=== PATIENT | female | born 1970 | race Caucasian/White ===

== ENCOUNTER 2018-09-29 15:33 | Emergency (ER) | payer SELFPAY ==
--- NOTE | 2018-09-29 15:49 | EDM.PDOC ---
ED HPI GENERAL MEDICAL PROBLEM - General Chief Complaint: Gastrointestinal Problem Stated Complaint: NOT FEELING WELL Time Seen by Provider: 09/29/18 15:33 Source of Information: Reports: Patient, Family, Old Records, RN, RN Notes Reviewed History Limitations: Reports: No Limitations - History of Present Illness INITIAL COMMENTS - FREE TEXT/NARRATIVE: Patient presents the emergency room at [facility] for the evaluation of nausea and vomiting. The patient states that her symptoms started a few days ago and has progressively gotten worse. The patient did contact her primary care provider this morning who recommended that she stopped taking her metformin as this may be a cause. The patient is a known type II diabetic. The patient is had poor control of her diabetes. The patient usually takes NovoLog 15 units daily with her largest meal. The patient has been out of her insulin the past couple of days. The patient denies any shortness of breath or chest pain. The patient states that her abdomen feels sore. The patient has not had any problems with UTI symptoms. The patient denies any focal neurological deficits. The patient's last A1c was 14% on March 29, 2018. The patient's lipids have been controlled without any statin therapy. The patient currently is taking lisinopril for blood pressure control. The patient was recently changed over to Soliqua 36 units daily. She has not picked up this medicine. The patient also had her metformin increased to 850 mg twice a day. She has not started this new dose of Metformin. Onset: Gradual Onset Date: 09/27/18 - Related Data Allergies Allergy/AdvReac Type Severity Reaction Status Date / Time No Known Allergies Allergy Verified 09/29/18 16:11 Home Meds: Home Meds Insulin Aspart [Novolog Flexpen] 10 units SUBCUT BIDAC 02/25/16 [History] Insulin Detemir [Levemir Flextouch] 20 units SUBCUT BEDTIME 02/25/16 [History] metFORMIN HCl [Metformin HCl] 500 mg PO BID 02/25/16 [History] Insulin Detemir [Levemir] 40 unit SUBCUT DAILY pen 02/26/16 [Rx] cloNIDine [Catapres-TTS 1] 0.1 mg TRDERM Q7D #4 patch 02/26/16 [Rx] metFORMIN [Glucophage XR] 1,000 mg PO BIDMEALS tab.er 02/26/16 [Rx] Past Medical History HEENT History: Reports: None Cardiovascular History: Reports: Hypertension Respiratory History: Reports: Asthma 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 Denies: Fever, Chills Respiratory: Denies: Shortness of Breath, Cough Cardiovascular: Denies: Chest Pain, Palpitations GI/Abdominal: Reports: Abdominal Pain, Nausea, Vomiting. Denies: Diarrhea Skin: Reports: No Symptoms Neurological: Reports: No Symptoms ED EXAM, GI/ABD - Physical Exam Exam: See Below Exam Limited By: No Limitations General Appearance: Alert, No Apparent Distress Respiratory/Chest: No Respiratory Distress, Lungs Clear, Normal Breath Sounds Cardiovascular: Normal Peripheral Pulses, Regular Rate, Rhythm GI/Abdominal Exam: Soft, Non-Tender, Abnormal Bowel Sounds (Hypoactive) Neurological: Alert, Oriented Skin Exam: Warm, Dry, Intact, Normal Color Course - Vital Signs Last Recorded V/S: Last Vital Signs Temp 35.5 C 09/29/18 15:35 Pulse 83 09/29/18 15:35 Resp 18 09/29/18 15:35 BP 152/80 H 09/29/18 15:35 Pulse Ox 99 09/29/18 15:35 - Orders/Labs/Meds Labs: Laboratory Tests 09/29/18 09/29/18 09/29/18 Range/Units 16:02 16:02 16:02 WBC 14.4 H (4.0-10.0) x10^3/uL RBC 4.73 (4.00-5.50) x10^6/uL Hgb 11.9 L (12.0-16.0) g/dL Hct 36.6 (33.0-47.0) % MCV 77.4 L (78.0-93.0) fL MCH 25.2 L (26.0-32.0) pg MCHC 32.5 (32.0-36.0) g/dL RDW Coeff of Juan 15.0 (10.0-15.0) % Plt Count 401 H (130-400) x10^3/uL Neut % (Auto) 87.5 H (50.0-80.0) % Lymph % (Auto) 10.8 L (25.0-50.0) % [place] % (Auto) 1.5 L (2.0-11.0) % Eos % (Auto) 0.0 (0.0-4.0) % Baso % (Auto) 0.2 (0.2-1.2) % Sodium 134 L (136-145) mmol/L Potassium 4.3 (3.5-5.1) mmol/L Chloride 97 L (98-107) mmol/L Carbon Dioxide 23 (21-32) mmol/L Anion Gap 18.3 (10-20) mmol/L BUN 17 (7-18) mg/dL Creatinine 1.2 H (0.55-1.02) mg/dL Est Cr Clr Drug Dosing TNP Estimated GFR (MDRD) 48 Glucose 369 H (74-106) mg/dL Hemoglobin A1c (4.5-6.2) % Lactic Acid 2.8 H* (0.4-2.0) mmol/L Calcium 9.2 (8.5-10.1) mg/dL Corrected Calcium 9.68 (8.5-10.1) mg/dL Phosphorus 3.9 (2.6-4.7) mg/dL Magnesium 1.5 L (1.8-2.4) mg/dL Total Bilirubin 0.5 (0.2-1.0) mg/dL AST 19 (15-37) U/L ALT 26 (14-59) U/L Alkaline Phosphatase 103 (46-116) U/L Total Protein 8.1 (6.4-8.2) g/dL Albumin 3.4 (3.4-5.0) g/dL Globulin 4.7 Albumin/Globulin Ratio 0.72 Urine Color (YELLOW) Urine Appearance (CLEAR) Urine pH (5.0-8.0) Ur Specific [place] Urine Protein (NEGATIVE) mg/dL Urine Glucose (UA) (NEGATIVE) mg/dL Urine Ketones (NEGATIVE) mg/dL Urine Occult Blood (NEGATIVE) Urine Nitrite (NEGATIVE) Urine Bilirubin (NEGATIVE) Urine Urobilinogen (0.2) EU/dL Ur Leukocyte Esterase (NEGATIVE) Urine RBC (NOT SEEN) /HPF Urine WBC (NOT SEEN) /HPF Ur Squamous Epith Cells (NEGATIVE) /HPF Urine Bacteria (NEGATIVE) /HPF Urine Mucus (NEGATIVE) /LPF 09/29/18 09/29/18 Range/Units 16:02 17:30 WBC (4.0-10.0) x10^3/uL RBC (4.00-5.50) x10^6/uL Hgb (12.0-16.0) g/dL Hct (33.0-47.0) % MCV (78.0-93.0) fL MCH (26.0-32.0) pg MCHC (32.0-36.0) g/dL RDW Coeff of Juan (10.0-15.0) % Plt Count (130-400) x10^3/uL Neut % (Auto) (50.0-80.0) % Lymph % (Auto) (25.0-50.0) % [place] % (Auto) (2.0-11.0) % Eos % (Auto) (0.0-4.0) % Baso % (Auto) (0.2-1.2) % Sodium (136-145) mmol/L Potassium (3.5-5.1) mmol/L Chloride (98-107) mmol/L Carbon Dioxide (21-32) mmol/L Anion Gap (10-20) mmol/L BUN (7-18) mg/dL Creatinine (0.55-1.02) mg/dL Est Cr Clr Drug Dosing Estimated GFR (MDRD) Glucose (74-106) mg/dL Hemoglobin A1c 8.9 H (4.5-6.2) % Lactic Acid (0.4-2.0) mmol/L Calcium (8.5-10.1) mg/dL Corrected Calcium (8.5-10.1) mg/dL Phosphorus (2.6-4.7) mg/dL Magnesium (1.8-2.4) mg/dL Total Bilirubin (0.2-1.0) mg/dL AST (15-37) U/L ALT (14-59) U/L Alkaline Phosphatase (46-116) U/L Total Protein (6.4-8.2) g/dL Albumin (3.4-5.0) g/dL Globulin Albumin/Globulin Ratio Urine Color Yellow (YELLOW) Urine Appearance Slightly cloudy H (CLEAR) Urine pH 5.5 (5.0-8.0) Ur Specific [place] 1.025 Urine Protein 30 H (NEGATIVE) mg/dL Urine Glucose (UA) 500 H (NEGATIVE) mg/dL Urine Ketones 80 H (NEGATIVE) mg/dL Urine Occult Blood Trace-intact H (NEGATIVE) Urine Nitrite Negative (NEGATIVE) Urine Bilirubin Small H (NEGATIVE) Urine Urobilinogen 0.2 (0.2) EU/dL Ur Leukocyte Esterase Negative (NEGATIVE) Urine RBC 0-5 (NOT SEEN) /HPF Urine WBC 0-5 (NOT SEEN) /HPF Ur Squamous Epith Cells Many H (NEGATIVE) /HPF Urine Bacteria Not seen (NEGATIVE) /HPF Urine Mucus Not seen (NEGATIVE) /LPF Meds: Medications Discontinued Medications Generic Name Dose Route Start Last Admin Trade Name Freq PRN Reason Stop Dose Admin Sodium Chloride 1,000 mls @ 999 mls/hr 09/29/18 15:48 09/29/18 15:55 Normal Saline IV 09/29/18 16:48 999 mls/hr ONETIME ONE Administration Ondansetron HCl 4 mg 09/29/18 15:48 09/29/18 16:01 Zofran IVPUSH 09/29/18 15:49 4 mg ONETIME ONE Administration Prochlorperazine Edisylate 10 mg 09/29/18 16:57 09/29/18 17:13 Compazine IV 09/29/18 16:58 10 mg ONETIME ONE Administration - Radiology Interpretation Free Text/Narrative:: Abd xray: No acute findings in the abdomen See scanned report in EMR for details Departure - Departure Time of Disposition: 18:04 Disposition: Home, Self-Care 01 Condition: Good Clinical Impression: Dehydration Nausea & vomiting Qualifiers: Vomiting type: unspecified Vomiting Intractability: non-intractable Qualified Code(s): R11.2 - Nausea with vomiting, unspecified - Discharge Information *PRESCRIPTION DRUG MONITORING PROGRAM REVIEWED*: Not Applicable *COPY OF PRESCRIPTION DRUG MONITORING REPORT IN PATIENT MARIANA: Not Applicable Instructions: Nausea and Vomiting, Adult, Rehydration, Adult, Dehydration, Adult Referrals: Padmini Norris MD [Primary Care Provider] - Forms: ED Department Discharge Additional Instructions: 1. Stay well hydrated and rest 2. Stop Metformin, continue other insulins 3. LOTS of water 4. Take nausea medication as needed 5. See Dr. Norris as scheduled 6. Call us or return for any questions or concerns - Problem List Review Problem List Initiated/Reviewed/Updated: Yes - Assessment/Plan Assessment:: N/V of unknown etiology Plan: Labs and xray results discussed with patient. Offered admission, but patient declined. Will send Zofran home with patient. Needs to stay hydrated. Stop Metformin and continue with insulin as per home medication list. Patient to see PCP at next scheduled appt this week.
[2018-09-29] MEDS: Sodium Chloride 0.9% 1,000 ML IV ONE (15:55)
[2018-09-29] MEDS: Ondansetron 4 MG/2 ML SDV IVPUSH ONE (16:01)
[2018-09-29 16:15] LABS: HEMOGLOBIN A1C 8.9 % (4.5-6.2)
[2018-09-29 16:27] LABS: CHLORIDE,CL 97 mmol/L (98-107); SODIUM,NA 134 mmol/L (136-145)
[2018-09-29 16:28] LABS: ANION GAP 18.3 mmol/L (10-20)
[2018-09-29 16:30] VITALS: BP 152/80
[2018-09-29] MEDS: Prochlorperazine 10 MG/2 ML SDV IV ONE (17:13)
--- NOTE | 2018-09-29 17:57 | CR ---
[id number] RAD/RAD Abd Flat and Upright 2V EXAM: RAD Abd Flat and Upright 2V INDICATION: NAUSEA AND VOMITING. COMPARISON: None. DISCUSSION: Unobstructed bowel gas pattern. No radiographically evident pneumoperitoneum. Surgical clips project over the right upper quadrant. Vascular calcifications project over the pelvis. IMPRESSION: No acute findings in the abdomen. Sridhar Sheridan MD 09/29/18 [id number] Thank you for allowing us to participate in the care of your patient.
[2018-09-29] MEDS: Take Home: Ondansetron 4 MG Tab.DIS, 2 Tab Pack PO ONE (18:25)
== END 2018-09-29 18:25 | disposition home or self-care (01) ==
LOC: VM.ED 15:33
DX: E86.0 Dehydration (principal); R11.2 Nausea with vomiting, unspecified; I10 Essential (primary) hypertension; E11.9 Type 2 diabetes mellitus without complications; J45.909 Unspecified asthma, uncomplicated; Z79.4 Long term (current) use of insulin
CPT/HCPCS: 36415; 74019; 80053; 81001; 83036; 83605; 83735; 84100; 85025; 96361; 96374; 96375; 99284; A9270; J0780; J2405; J7030

== ENCOUNTER 2018-09-30 15:36 | Observation (INO) | payer SELFPAY ==
[2018-09-30] MEDS ORDERED: Sodium Chloride 0.9% 10 ML Syringe FLUSH PRN (16:16)
[2018-09-30] MEDS ORDERED: Ondansetron 4 MG/2 ML SDV IVPUSH ONE ×2 (16:16→17:15)
[2018-09-30] MEDS ORDERED: Sodium Chloride 0.9% 1,000 ML IV ONE (16:16)
--- NOTE | 2018-09-30 16:22 | EDM.PDOC ---
ED HPI GENERAL MEDICAL PROBLEM - General Chief Complaint: Gastrointestinal Problem Stated Complaint: Nausea and Vomiting Time Seen by Provider: 09/30/18 16:09 Source of Information: Reports: Patient History Limitations: Reports: No Limitations - History of Present Illness INITIAL COMMENTS - FREE TEXT/NARRATIVE: Patient returns to the ED after a visit yesterday in which she declined admission with similar complaints of nausea, vomiting, inability to eat or drink. She states the nausea started last week, and nausea progressed to emesis starting Thursday. Unable to keep anything down since Thursday. Has not been taking medications since Thursday. Is known to have DM II, and is not well controlled. Recent increase in metformin to 850 BID which she has not started. Additionally, has not started a new medication Soliqua which was started by her primary care provider. White count at yesterday's visit was elevated at 14.4, lactic acid elevated at 2.8. Urine positive for ketones, protein, blood, WBC's, RBC's, mucus, negative for nitrates and leukocytes. Returns to the ED with complaints of continuing nausea and vomiting. Denies headache, chest pain , SOB, denies abdominal pain, denies flank pain, no fever or chills. Onset: Gradual Duration: Intermittent Location: Reports: Abdomen, Generalized Severity: Moderate Worsens with: Reports: Eating Associated Symptoms: Reports: Nausea/Vomiting - Related Data Allergies Allergy/AdvReac Type Severity Reaction Status Date / Time No Known Allergies Allergy Verified 09/30/18 17:33 Home Meds: Home Meds Insulin Aspart [Novolog Flexpen] 10 units SUBCUT BIDAC 02/25/16 [History] Insulin Detemir [Levemir Flextouch] 20 units SUBCUT BEDTIME 02/25/16 [History] metFORMIN HCl [Metformin HCl] 500 mg PO BID 02/25/16 [History] Insulin Detemir [Levemir] 40 unit SUBCUT DAILY pen 02/26/16 [Rx] cloNIDine [Catapres-TTS 1] 0.1 mg TRDERM Q7D #4 patch 02/26/16 [Rx] metFORMIN [Glucophage XR] 1,000 mg PO BIDMEALS tab.er 02/26/16 [Rx] Ondansetron HCl [Zofran] 1 tab PO Q8H PRN #15 tablet 09/29/18 [Rx] Past Medical History HEENT History: Reports: None Cardiovascular History: Reports: Hypertension Respiratory History: Reports: Asthma 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: Endocrine/Metabolic History: Reports: Diabetes, Type II - Infectious Disease History Infectious Disease History: Reports: Chicken Pox - Past Surgical History Female Surgical History: Reports: Tubal Ligation Social & Family History - Family History Family Medical History: Noncontributory - Caffeine Use Caffeine Use: Reports: Coffee ED ROS GENERAL - Review of Systems Review Of Systems: See Below Constitutional: Reports: No Symptoms HEENT: Reports: No Symptoms Respiratory: Reports: No Symptoms Cardiovascular: Reports: No Symptoms Endocrine: Reports: No Symptoms GI/Abdominal: Reports: Diarrhea, Nausea, Vomiting : Reports: No Symptoms Musculoskeletal: Reports: No Symptoms Skin: Reports: No Symptoms Neurological: Reports: No Symptoms Psychiatric: Reports: No Symptoms Hematologic/Lymphatic: Reports: No Symptoms Immunologic: Reports: No Symptoms ED EXAM, GI/ABD - Physical Exam Exam: See Below Text/Narrative:: PLEASE USE ER NOTE FOR ADMISSION HISTORY AND PHYSICAL Exam Limited By: No Limitations General Appearance: Alert, WD/WN, Mild Distress Eyes: Bilateral: Normal Appearance, EOMI Ears: Normal TMs Throat/Mouth: Normal Inspection, Normal Lips, Normal Teeth, Normal Gums, Normal Oropharynx, Normal Voice, No Airway Compromise Head: Atraumatic, Normocephalic Neck: Normal Inspection, Supple, Non-Tender, Full Range of Motion Respiratory/Chest: No Respiratory Distress, Lungs Clear, Normal Breath Sounds, No Accessory Muscle Use, Chest Non-Tender Cardiovascular: Normal Peripheral Pulses, Regular Rate, Rhythm, No Edema, No Gallop, No JVD, No Murmur, No Rub GI/Abdominal Exam: Normal Bowel Sounds, Soft, Non-Tender, No Organomegaly, No Distention Back Exam: Normal Inspection, Full Range of Motion, NT Extremities: Normal Inspection, Normal Range of Motion, Non-Tender, Normal Capillary Refill, No Pedal Edema Neurological: Alert, Oriented, CN II-XII Intact, Normal Cognition, Normal Gait, Normal Reflexes, No Motor/Sensory Deficits Psychiatric: Normal Affect, Normal Mood Skin Exam: Warm, Dry, Intact, Normal Color, No Rash Lymphatic: No Adenopathy Course - Orders/Labs/Meds Orders: Active Orders 24 hr Category Date Time Status Abdomen Pelvis wo Cont [CT] Stat Exams 09/30/18 16:59 Ordered Sodium Chloride 0.9% [Saline Flush] Med 09/30/18 16:16 Active 10 ml FLUSH ASDIRECTED PRN Saline Lock Insert [OM.PC] Routine Oth 09/30/18 16:16 Ordered Medication Orders Sodium Chloride (Saline Flush) 10 ml FLUSH ASDIRECTED PRN PRN Reason: Keep Vein Open Labs: Laboratory Tests 09/30/18 09/30/18 09/30/18 Range/Units 16:25 16:25 16:25 WBC 21.0 H* (4.0-10.0) x10^3/uL RBC 4.83 (4.00-5.50) x10^6/uL Hgb 12.3 (12.0-16.0) g/dL Hct 37.6 (33.0-47.0) % MCV 77.8 L (78.0-93.0) fL MCH 25.5 L (26.0-32.0) pg MCHC 32.7 (32.0-36.0) g/dL RDW Coeff of Juan 15.4 H (10.0-15.0) % Plt Count 422 H (130-400) x10^3/uL Add Manual Diff Yes Neutrophils % (Manual) 92 H (50-80) % Lymphocytes % (Manual) 4 L (25-50) % Monocytes % (Manual) 4 (2-11) % Sodium 133 L (136-145) mmol/L Potassium 4.0 (3.5-5.1) mmol/L Chloride 95 L (98-107) mmol/L Carbon Dioxide 26 (21-32) mmol/L Anion Gap 16.0 (10-20) mmol/L BUN 18 (7-18) mg/dL Creatinine 1.0 (0.55-1.02) mg/dL Est Cr Clr Drug Dosing TNP Estimated GFR (MDRD) 59 Glucose 298 H (74-106) mg/dL Lactic Acid 1.9 (0.4-2.0) mmol/L Calcium 9.1 (8.5-10.1) mg/dL Corrected Calcium 9.42 (8.5-10.1) mg/dL Total Bilirubin 0.5 (0.2-1.0) mg/dL AST 28 (15-37) U/L ALT 24 (14-59) U/L Alkaline Phosphatase 100 (46-116) U/L C-Reactive Protein (<=0.9) mg/dL Total Protein 8.4 H (6.4-8.2) g/dL Albumin 3.6 (3.4-5.0) g/dL Globulin 4.8 Albumin/Globulin Ratio 0.75 TSH, Ultra Sensitive (0.358-3.74) uIU/mL Urine Color (YELLOW) Urine Appearance (CLEAR) Urine pH (5.0-8.0) Ur Specific [place] Urine Protein (NEGATIVE) mg/dL Urine Glucose (UA) (NEGATIVE) mg/dL Urine Ketones (NEGATIVE) mg/dL Urine Occult Blood (NEGATIVE) Urine Nitrite (NEGATIVE) Urine Bilirubin (NEGATIVE) Urine Urobilinogen (0.2) EU/dL Ur Leukocyte Esterase (NEGATIVE) Urine RBC (NOT SEEN) /HPF Urine WBC (NOT SEEN) /HPF Ur Squamous Epith Cells (NEGATIVE) /HPF Hyaline Casts (NEGATIVE) /HPF Urine Mucus (NEGATIVE) /LPF 09/30/18 09/30/18 09/30/18 Range/Units 16:25 16:40 17:07 WBC (4.0-10.0) x10^3/uL RBC (4.00-5.50) x10^6/uL Hgb (12.0-16.0) g/dL Hct (33.0-47.0) % MCV (78.0-93.0) fL MCH (26.0-32.0) pg MCHC (32.0-36.0) g/dL RDW Coeff of Juan (10.0-15.0) % Plt Count (130-400) x10^3/uL Add Manual Diff Neutrophils % (Manual) (50-80) % Lymphocytes % (Manual) (25-50) % Monocytes % (Manual) (2-11) % Sodium (136-145) mmol/L Potassium (3.5-5.1) mmol/L Chloride (98-107) mmol/L Carbon Dioxide (21-32) mmol/L Anion Gap (10-20) mmol/L BUN (7-18) mg/dL Creatinine (0.55-1.02) mg/dL Est Cr Clr Drug Dosing Estimated GFR (MDRD) Glucose (74-106) mg/dL Lactic Acid (0.4-2.0) mmol/L Calcium (8.5-10.1) mg/dL Corrected Calcium (8.5-10.1) mg/dL Total Bilirubin (0.2-1.0) mg/dL AST (15-37) U/L ALT (14-59) U/L Alkaline Phosphatase (46-116) U/L C-Reactive Protein 2.0 H (<=0.9) mg/dL Total Protein (6.4-8.2) g/dL Albumin (3.4-5.0) g/dL Globulin Albumin/Globulin Ratio TSH, Ultra Sensitive 0.563 (0.358-3.74) uIU/mL Urine Color Yellow (YELLOW) Urine Appearance Slightly cloudy H (CLEAR) Urine pH 6.0 (5.0-8.0) Ur Specific [place] >=1.030 Urine Protein 100 H (NEGATIVE) mg/dL Urine Glucose (UA) 500 H (NEGATIVE) mg/dL Urine Ketones 40 H (NEGATIVE) mg/dL Urine Occult Blood Trace-lysed H (NEGATIVE) Urine Nitrite Negative (NEGATIVE) Urine Bilirubin Small H (NEGATIVE) Urine Urobilinogen 0.2 (0.2) EU/dL Ur Leukocyte Esterase Negative (NEGATIVE) Urine RBC 5-10 H (NOT SEEN) /HPF Urine WBC 0-5 (NOT SEEN) /HPF Ur Squamous Epith Cells Moderate H (NEGATIVE) /HPF Hyaline Casts Few H (NEGATIVE) /HPF Urine Mucus Few H (NEGATIVE) /LPF Meds: Medications Generic Name Dose Route Start Last Admin Trade Name Freq PRN Reason Stop Dose Admin Sodium Chloride 10 ml 09/30/18 16:16 Saline Flush FLUSH ASDIRECTED PRN Keep Vein Open Discontinued Medications Generic Name Dose Route Start Last Admin Trade Name Freq PRN Reason Stop Dose Admin Sodium Chloride 1,000 mls @ 999 mls/hr 09/30/18 16:16 09/30/18 16:29 Normal Saline IV 09/30/18 17:16 999 mls/hr ONETIME ONE Administration Ondansetron HCl 4 mg 09/30/18 16:16 09/30/18 16:29 Zofran IVPUSH 09/30/18 16:17 4 mg ONETIME ONE Administration Ondansetron HCl 4 mg 09/30/18 17:15 09/30/18 17:17 Zofran IVPUSH 09/30/18 17:16 4 mg ONETIME ONE Administration - Radiology Interpretation Free Text/Narrative:: CT abdomen pelvis negative for acute process Departure - Departure Time of Disposition: 18:14 Disposition: Refer to Observation Condition: Fair Clinical Impression: Nausea, vomiting and diarrhea - Discharge Information *PRESCRIPTION DRUG MONITORING PROGRAM REVIEWED*: Not Applicable *COPY OF PRESCRIPTION DRUG MONITORING REPORT IN PATIENT MARIANA: Not Applicable Referrals: PCP,None [Ordering Only Provider] - Forms: ED Department Discharge ED Communication - ED Communication Date/Time Date: 09/30/18 Time Called: 17:30 - Discussed Case With (1) Discussed Case With (1): Other (Discussed case with conflict resolution professional provider. I will admit to observation. Repeat labwork in AM and call with any changes or need to go acute.) - Problem List & Annotations (1) Nausea, vomiting and diarrhea SNOMED Code(s): 3175088 Code(s): R11.2 - NAUSEA WITH VOMITING, UNSPECIFIED; R19.7 - DIARRHEA, UNSPECIFIED Status: Acute Priority: Medium Current Visit: Yes - Problem List Review Problem List Initiated/Reviewed/Updated: Yes - My Orders Last 24 Hours: My Active Orders 09/30/18 16:16 Sodium Chloride 0.9% [Saline Flush] 10 ml FLUSH ASDIRECTED PRN Saline Lock Insert [OM.PC] Routine 09/30/18 16:59 Abdomen Pelvis wo Cont [CT] Stat - Assessment/Plan Last 24 Hours: My Active Orders 09/30/18 16:16 Sodium Chloride 0.9% [Saline Flush] 10 ml FLUSH ASDIRECTED PRN Saline Lock Insert [OM.PC] Routine 09/30/18 16:59 Abdomen Pelvis wo Cont [CT] Stat Assessment:: nausea and vomiting Plan: Admit to observation. Will provide fluid resuscitation, IV zofran for nausea, repeat labs in AM. Urine sent for culture. White count elevated, no fever, not tachycardic, blood pressure stable. Very mild elevation in CRP, normal lactic acid. Will not at this time treat with antibiotics, however will reevaluate based on any changing symptoms. Patient stable in ER and is a Code Level I.
[2018-09-30 17:12] LABS: CHLORIDE,CL 95 mmol/L (98-107); SODIUM,NA 133 mmol/L (136-145)
--- NOTE | 2018-09-30 17:41 | CT ---
[id number] CT/CT Abdomen Pelvis WO IV EXAM: CT Abdomen Pelvis WO IV CLINICAL DATA: NAUSEA,VOMITTING. COMPARISON STUDY: None. FINDINGS: Lung bases are clear. Liver, spleen, pancreas, adrenal glands, and kidneys are unremarkable. The gallbladder is surgically absent. No bowel obstruction or inflammation. The appendix is visualized and appears normal. No lymphadenopathy, free fluid, or pneumoperitoneum. Physiologic cysts bilaterally. The uterus is unremarkable Scattered changes of spondylosis the spine. No fracture or osseous lesion. IMPRESSION: No acute CT findings in the abdomen or pelvis to explain the patient's symptoms. Rory Adam DO 09/30/18 1741 Thank you for allowing us to participate in the care of your patient.
[2018-09-30] MEDS ORDERED: Ondansetron 4 MG Tab.DIS PO PRN (18:43)
[2018-09-30] MEDS: Lactated Ringers 1,000 ML IV SCH (19:08)
[2018-09-30] MEDS ORDERED: Promethazine 12.5 MG in Sodium Chloride 0.9% 100 ML IV ONE (20:55)
[2018-10-01 07:16] LABS: CHLORIDE,CL 100 mmol/L (98-107); SODIUM,NA 136 mmol/L (136-145)
[2018-10-01] MEDS ORDERED: Hydrochlorothiazide 25 MG Tab PO SCH (09:00)
[2018-10-01] MEDS ORDERED: Sodium Chloride 0.9% 1,000 ML IV ONE ×3 (09:00→23:00)
[2018-10-01] MEDS ORDERED: Prochlorperazine 5 MG Tab PO PRN (09:01)
[2018-10-01] MEDS: Lactated Ringers 1,000 ML IV SCH (09:06)
[2018-10-01] MEDS: LISINOPRIL 30 MG PO SCH (09:50)
[2018-10-01] MEDS: HYDROCHLOROTHIAZIDE 25 MG PO SCH (09:50)
[2018-10-01] MEDS: Metoclopramide 10 MG/2 ML SDV IVPUSH SCH ×3 (09:50→22:36)
--- NOTE | 2018-10-01 10:45 | PCM.PN ---
- General Info Date of Service: 10/01/18 Admission Dx/Problem (Free Text): Pt. admitted yesterday with severe nausea and vomiting by BRENDON Weldon. Please refer to his H and P. Pt. was started on IV zofran and was continuing to vomit. Phenergan was added. She has been on NS at 100ml./hr. Pt. reports that she still feels profoundly weak and nauseated. She states that she has not vomited since approx. 0600 this AM. She states that she has had one BM. Stool studies were obtained. Her antihypertensives and diabetes meds have been held at this point and both her blood sugar and blood pressure are quite elevated this AM. Pt. has a history of non-compliance with her medications. She likely has some underlying gastroparesis due to this. Will order an A1C. Functional Status: Reports: Pain Controlled - Review of Systems General: Reports: No Symptoms HEENT: Reports: No Symptoms Pulmonary: Reports: No Symptoms Cardiovascular: Reports: No Symptoms Gastrointestinal: Reports: No Symptoms Genitourinary: Reports: No Symptoms Musculoskeletal: Reports: No Symptoms Skin: Reports: No Symptoms Neurological: Reports: No Symptoms Psychiatric: Reports: No Symptoms - Patient Data Vitals - Most Recent: Last Vital Signs Temp 36.6 C 10/01/18 09:36 Pulse 95 10/01/18 09:36 Resp 16 10/01/18 09:36 BP 191/89 H 10/01/18 09:36 Pulse Ox 99 10/01/18 05:54 Weight - Most Recent: 103.419 kg I&O - Last 24 Hours: Intake & Output 09/30/18 10/01/18 10/01/18 22:59 06:59 14:59 Intake Total 1300 Output Total 650 400 Balance 650 -400 Lab Results Last 24 Hours: Laboratory Results - last 24 hr 09/30/18 09/30/18 09/30/18 Range/Units 16:25 16:25 16:25 WBC 21.0 H* (4.0-10.0) x10^3/uL RBC 4.83 (4.00-5.50) x10^6/uL Hgb 12.3 (12.0-16.0) g/dL Hct 37.6 (33.0-47.0) % MCV 77.8 L (78.0-93.0) fL MCH 25.5 L (26.0-32.0) pg MCHC 32.7 (32.0-36.0) g/dL RDW Coeff of Juan 15.4 H (10.0-15.0) % Plt Count 422 H (130-400) x10^3/uL Neut % (Auto) (50.0-80.0) % Lymph % (Auto) (25.0-50.0) % [place] % (Auto) (2.0-11.0) % Eos % (Auto) (0.0-4.0) % Baso % (Auto) (0.2-1.2) % Add Manual Diff Yes Neutrophils % (Manual) 92 H (50-80) % Lymphocytes % (Manual) 4 L (25-50) % Monocytes % (Manual) 4 (2-11) % Sodium 133 L (136-145) mmol/L Potassium 4.0 (3.5-5.1) mmol/L Chloride 95 L (98-107) mmol/L Carbon Dioxide 26 (21-32) mmol/L Anion Gap 16.0 (10-20) mmol/L BUN 18 (7-18) mg/dL Creatinine 1.0 (0.55-1.02) mg/dL Est Cr Clr Drug Dosing TNP Estimated GFR (MDRD) 59 Glucose 298 H (74-106) mg/dL Lactic Acid 1.9 (0.4-2.0) mmol/L Calcium 9.1 (8.5-10.1) mg/dL Corrected Calcium 9.42 (8.5-10.1) mg/dL Magnesium (1.8-2.4) mg/dL Total Bilirubin 0.5 (0.2-1.0) mg/dL AST 28 (15-37) U/L ALT 24 (14-59) U/L Alkaline Phosphatase 100 (46-116) U/L C-Reactive Protein (<=0.9) mg/dL Total Protein 8.4 H (6.4-8.2) g/dL Albumin 3.6 (3.4-5.0) g/dL Globulin 4.8 Albumin/Globulin Ratio 0.75 TSH, Ultra Sensitive (0.358-3.74) uIU/mL Urine Color (YELLOW) Urine Appearance (CLEAR) Urine pH (5.0-8.0) Ur Specific [place] Urine Protein (NEGATIVE) mg/dL Urine Glucose (UA) (NEGATIVE) mg/dL Urine Ketones (NEGATIVE) mg/dL Urine Occult Blood (NEGATIVE) Urine Nitrite (NEGATIVE) Urine Bilirubin (NEGATIVE) Urine Urobilinogen (0.2) EU/dL Ur Leukocyte Esterase (NEGATIVE) Urine RBC (NOT SEEN) /HPF Urine WBC (NOT SEEN) /HPF Ur Squamous Epith Cells (NEGATIVE) /HPF Hyaline Casts (NEGATIVE) /HPF Urine Mucus (NEGATIVE) /LPF 09/30/18 09/30/18 09/30/18 Range/Units 16:25 16:25 16:40 WBC (4.0-10.0) x10^3/uL RBC (4.00-5.50) x10^6/uL Hgb (12.0-16.0) g/dL Hct (33.0-47.0) % MCV (78.0-93.0) fL MCH (26.0-32.0) pg MCHC (32.0-36.0) g/dL RDW Coeff of Juan (10.0-15.0) % Plt Count (130-400) x10^3/uL Neut % (Auto) (50.0-80.0) % Lymph % (Auto) (25.0-50.0) % Winkler % (Auto) (2.0-11.0) % Eos % (Auto) (0.0-4.0) % Baso % (Auto) (0.2-1.2) % Add Manual Diff Neutrophils % (Manual) (50-80) % Lymphocytes % (Manual) (25-50) % Monocytes % (Manual) (2-11) % Sodium (136-145) mmol/L Potassium (3.5-5.1) mmol/L Chloride (98-107) mmol/L Carbon Dioxide (21-32) mmol/L Anion Gap (10-20) mmol/L BUN (7-18) mg/dL Creatinine (0.55-1.02) mg/dL Est Cr Clr Drug Dosing Estimated GFR (MDRD) Glucose (74-106) mg/dL Lactic Acid (0.4-2.0) mmol/L Calcium (8.5-10.1) mg/dL Corrected Calcium (8.5-10.1) mg/dL Magnesium 2.1 (1.8-2.4) mg/dL Total Bilirubin (0.2-1.0) mg/dL AST (15-37) U/L ALT (14-59) U/L Alkaline Phosphatase (46-116) U/L C-Reactive Protein (<=0.9) mg/dL Total Protein (6.4-8.2) g/dL Albumin (3.4-5.0) g/dL Globulin Albumin/Globulin Ratio TSH, Ultra Sensitive 0.563 (0.358-3.74) uIU/mL Urine Color Yellow (YELLOW) Urine Appearance Slightly cloudy H (CLEAR) Urine pH 6.0 (5.0-8.0) Ur Specific [place] >=1.030 Urine Protein 100 H (NEGATIVE) mg/dL Urine Glucose (UA) 500 H (NEGATIVE) mg/dL Urine Ketones 40 H (NEGATIVE) mg/dL Urine Occult Blood Trace-lysed H (NEGATIVE) Urine Nitrite Negative (NEGATIVE) Urine Bilirubin Small H (NEGATIVE) Urine Urobilinogen 0.2 (0.2) EU/dL Ur Leukocyte Esterase Negative (NEGATIVE) Urine RBC 5-10 H (NOT SEEN) /HPF Urine WBC 0-5 (NOT SEEN) /HPF Ur Squamous Epith Cells Moderate H (NEGATIVE) /HPF Hyaline Casts Few H (NEGATIVE) /HPF Urine Mucus Few H (NEGATIVE) /LPF 09/30/18 10/01/18 10/01/18 Range/Units 17:07 06:30 06:30 WBC 17.1 H (4.0-10.0) x10^3/uL RBC 4.72 (4.00-5.50) x10^6/uL Hgb 12.0 (12.0-16.0) g/dL Hct 37.6 (33.0-47.0) % MCV 79.7 (78.0-93.0) fL MCH 25.4 L (26.0-32.0) pg MCHC 31.9 L (32.0-36.0) g/dL RDW Coeff of Juan 15.6 H (10.0-15.0) % Plt Count 433 H (130-400) x10^3/uL Neut % (Auto) 81.7 H (50.0-80.0) % Lymph % (Auto) 12.7 L (25.0-50.0) % Winkler % (Auto) 5.3 (2.0-11.0) % Eos % (Auto) 0.1 (0.0-4.0) % Baso % (Auto) 0.2 (0.2-1.2) % Add Manual Diff Neutrophils % (Manual) (50-80) % Lymphocytes % (Manual) (25-50) % Monocytes % (Manual) (2-11) % Sodium 136 (136-145) mmol/L Potassium 4.0 (3.5-5.1) mmol/L Chloride 100 (98-107) mmol/L Carbon Dioxide 25 (21-32) mmol/L Anion Gap 15.0 (10-20) mmol/L BUN 15 (7-18) mg/dL Creatinine 0.9 (0.55-1.02) mg/dL Est Cr Clr Drug Dosing 66.73 Estimated GFR (MDRD) > 60 Glucose 284 H (74-106) mg/dL Lactic Acid (0.4-2.0) mmol/L Calcium 8.4 L (8.5-10.1) mg/dL Corrected Calcium (8.5-10.1) mg/dL Magnesium 2.2 (1.8-2.4) mg/dL Total Bilirubin (0.2-1.0) mg/dL AST (15-37) U/L ALT (14-59) U/L Alkaline Phosphatase (46-116) U/L C-Reactive Protein 2.0 H (<=0.9) mg/dL Total Protein (6.4-8.2) g/dL Albumin (3.4-5.0) g/dL Globulin Albumin/Globulin Ratio TSH, Ultra Sensitive (0.358-3.74) uIU/mL Urine Color (YELLOW) Urine Appearance (CLEAR) Urine pH (5.0-8.0) Ur Specific [place] Urine Protein (NEGATIVE) mg/dL Urine Glucose (UA) (NEGATIVE) mg/dL Urine Ketones (NEGATIVE) mg/dL Urine Occult Blood (NEGATIVE) Urine Nitrite (NEGATIVE) Urine Bilirubin (NEGATIVE) Urine Urobilinogen (0.2) EU/dL Ur Leukocyte Esterase (NEGATIVE) Urine RBC (NOT SEEN) /HPF Urine WBC (NOT SEEN) /HPF Ur Squamous Epith Cells (NEGATIVE) /HPF Hyaline Casts (NEGATIVE) /HPF Urine Mucus (NEGATIVE) /LPF Med Orders - Current: Current Medications Enoxaparin Sodium (Lovenox) 40 mg SUBCUT DAILY@1200 TEJA Lactated Ringer's (Ringers, Lactated) 1,000 mls @ 100 mls/hr IV ASDIRECTED [facility] Last Admin: 10/01/18 09:06 Dose: 100 mls/hr Sodium Chloride (Normal Saline) 1,000 mls @ 250 mls/hr IV .BOLUS ONE Stop: 10/01/18 12:59 Last Admin: 10/01/18 09:56 Dose: 250 mls/hr Metoclopramide HCl (Reglan) 5 mg IVPUSH Q6H [facility] Last Admin: 10/01/18 09:50 Dose: 5 mg Insulin Aspart [ (Novolog Flexpen]) 0 units SUBCUT QPM [facility] Lisinopril 30mg (Own (Supply)) 0 mg PO DAILY [facility] Last Admin: 10/01/18 09:50 Dose: 30 mg Insulin Glargine/Lixisenatide [ Soliqua 100 Unit-33 Mcg/Ml] 0 units SQ DAILY [facility] Hydrochlorothiazide. (25mg (Own Supply)) 1 each PO DAILY [facility] Last Admin: 10/01/18 09:50 Dose: 1 each Ondansetron HCl (Zofran Odt) 4 mg PO Q4H PRN PRN Reason: nausea, able to take PO Prochlorperazine Maleate (Compazine) 5 mg PO Q6H PRN PRN Reason: Nausea/Vomiting Sodium Chloride (Saline Flush) 10 ml FLUSH ASDIRECTED PRN PRN Reason: Keep Vein Open Discontinued Medications Sodium Chloride (Normal Saline) 1,000 mls @ 999 mls/hr IV ONETIME ONE Stop: 09/30/18 17:16 Last Admin: 09/30/18 16:29 Dose: 999 mls/hr Promethazine HCl 12.5 mg/ (Sodium Chloride) 100.5 mls @ 400 mls/hr IV ONETIME ONE Stop: 09/30/18 21:10 Last Admin: 09/30/18 22:29 Dose: 400 mls/hr Non-Formulary Medication (Metformin [Glucophage Xr]) 800 mg PO BIDMEALS [facility] Ondansetron HCl (Zofran) 4 mg IVPUSH ONETIME ONE Stop: 09/30/18 16:17 Last Admin: 09/30/18 16:29 Dose: 4 mg Ondansetron HCl (Zofran) 4 mg IVPUSH ONETIME ONE Stop: 09/30/18 17:16 Last Admin: 09/30/18 17:17 Dose: 4 mg - Exam Quality Assessment: Supplemental Oxygen General: Alert, Oriented, Mild Distress Lungs: Clear to Auscultation, Normal Respiratory Effort Cardiovascular: Regular Rate, Regular Rhythm GI/Abdominal Exam: Normal Bowel Sounds, Soft, Non-Tender, No Organomegaly, No Distention, No Mass (Female) Exam: Deferred Back Exam: Normal Inspection, Full Range of Motion Extremities: Normal Inspection, Normal Range of Motion, Non-Tender, No Pedal Edema, Normal Capillary Refill Peripheral Pulses: 4+: Radial (R) Skin: Warm, Dry, Intact Neurological: No New Focal Deficit Psy/Mental Status: Alert, Normal Affect, Normal Mood - Problem List Review Problem List Initiated/Reviewed/Updated: Yes - My Orders Last 24 Hours: My Active Orders 10/01/18 08:00 Lisinopril [Lisinopril] 0 mg PO DAILY 10/01/18 09:00 Metoclopramide [Reglan] 5 mg IVPUSH Q6H Sodium Chloride 0.9% [Normal Saline] 1,000 ml IV .BOLUS 10/01/18 09:01 Prochlorperazine [Compazine] 5 mg PO Q6H PRN 10/01/18 12:00 Enoxaparin [Lovenox] 40 mg SUBCUT DAILY@1200 10/01/18 20:00 Insulin Aspart [Novolog Flexpen] 0 units SUBCUT QPM 10/02/18 07:00 CBC W/O DIFF,HEMOGRAM [HEME] Q3D 10/02/18 08:00 Insulin Glargine/Lixisenatide [Soliqua 100 Unit-33 Mcg/ml Pen] 0 units SQ DAILY 10/05/18 07:00 CBC W/O DIFF,HEMOGRAM [HEME] Q3D 10/08/18 07:00 CBC W/O DIFF,HEMOGRAM [HEME] Q3D 10/11/18 07:00 CBC W/O DIFF,HEMOGRAM [HEME] Q3D 10/14/18 07:00 CBC W/O DIFF,HEMOGRAM [HEME] Q3D 10/17/18 07:00 CBC W/O DIFF,HEMOGRAM [HEME] Q3D 10/20/18 07:00 CBC W/O DIFF,HEMOGRAM [HEME] Q3D - Plan Plan:: Her IV fluids were increased to 250ml/hr with plan to reevaluate the patient thoughout the day. She is still profoundly dehydrated. Changed her nausea/ vomiting regime from zofran and phenergan to compazine and reglan. This worked well for her when she was admitted previously. It she is still nauseated, may add some ativan. Start DVT prophylaxis with Lovenox. Her hydrochlorothiazine and lisinopril were restarted, as was her basal insulin and novolog. Pt. states that she feels the metformin is what is making her ill. She just started taking this before she got sick. All questions were answered.
[2018-10-01] MEDS ORDERED: Enoxaparin 40 MG/0.4 ML Syringe SUBCUT SCH (12:00)
[2018-10-01] MEDS: INSULIN GLARGINE SQ SCH ×2 (13:04→13:11)
[2018-10-01] MEDS: LIXISENATIDE SQ SCH ×2 (13:04→13:11)
[2018-10-01] MEDS ORDERED: Insulin Aspart [Novolog Flexpen] SUBCUT SCH (18:00)
[2018-10-01] MEDS ORDERED: METFORMIN PO SCH (18:00)
[2018-10-02] MEDS: Metoclopramide 10 MG/2 ML SDV IVPUSH SCH ×2 (04:15→09:48)
[2018-10-02 06:00] VITALS: BP 187/90
[2018-10-02 08:01] LABS: CHLORIDE,CL 100 mmol/L (98-107); SODIUM,NA 135 mmol/L (136-145)
[2018-10-02 08:05] LABS: ANION GAP 15.4 mmol/L (10-20)
[2018-10-02] MEDS: INSULIN GLARGINE SQ SCH (08:07)
[2018-10-02] MEDS: HYDROCHLOROTHIAZIDE 25 MG PO SCH (08:07)
[2018-10-02] MEDS: LIXISENATIDE SQ SCH (08:07)
[2018-10-02] MEDS: LISINOPRIL 30 MG PO SCH (08:07)
--- NOTE | 2018-10-02 09:30 | PCM.DCSUM1 ---
Discharge Summary - Hospital Course Brief History: Patient admitted 2 days ago with severe nausea and vomiting by BRENDON Weldon. Please refer to his H and P. Patient was started on IV zofran and was continuing to vomit. Phenergan was added. She continued to have nausea and vomiting. At that time she was changed to compazine and reglan. Her nausea has been well controlled since then. No vomiting episode in almost 24 hours. She also had IV fluids given during her stay due to dehydration. Patient had an uneventful night and VSS. She is up ambulating had some breakfast. Declines any pain and states she is not back to her baseline but feels it is getting there. She would like to be discharged and continue to rest at home. Diagnosis: Stroke: No - Discharge Data Discharge Date: 10/02/18 Discharge Disposition: Home, Self-Care 01 Condition: Good - Discharge Diagnosis/Problem(s) (1) Nausea, vomiting and diarrhea SNOMED Code(s): 7855128 ICD Code: R11.2 - NAUSEA WITH VOMITING, UNSPECIFIED; R19.7 - DIARRHEA, UNSPECIFIED Status: Acute Priority: Medium Current Visit: Yes (2) Dehydration SNOMED Code(s): 63512451 ICD Code: E86.0 - DEHYDRATION Status: Acute Current Visit: No (3) Gastroenteritis SNOMED Code(s): 64880028 ICD Code: K52.9 - NONINFECTIVE GASTROENTERITIS AND COLITIS, UNSPECIFIED Status: Acute Current Visit: No - Patient Instructions Diet: Usual Diet as Tolerated Activity: As Tolerated Driving: May Drive Today Showering/Bathing: May Shower Other/Special Instructions: 1. Rest. 2. Eat light meals and more frequent. 3. Take compazine as needed for nausea and vomiting. 4. Take Reglan three times a day until evaluated by your PCP. 5. follow up with your PCP in 3-4 days. 6. Activity and diet as tolerated. 7. Increase your oral intake of water to prevent dehydration. 8. Call with any questions or concerns. - Discharge Plan *PRESCRIPTION DRUG MONITORING PROGRAM REVIEWED*: Not Applicable *COPY OF PRESCRIPTION DRUG MONITORING REPORT IN PATIENT MARIANA: Not Applicable Home Medications: Home Meds Insulin Aspart [Novolog Flexpen] 15 units SUBCUT DAILY@1800 02/25/16 [History] Ondansetron HCl [Zofran] 1 tab PO Q8H PRN #15 tablet 09/29/18 [Rx] Insulin Glargine/Lixisenatide [Soliqua 100 Unit-33 Mcg/ml Pen] 38 units SQ QAM 09/30/18 [History] Lisinopril 30 mg PO DAILY 09/30/18 [History] hydroCHLOROthiazide [Hydrochlorothiazide] 25 mg PO DAILY 09/30/18 [History] Metoclopramide HCl [Reglan] 5 mg PO TID #12 tablet 10/02/18 [Rx] Prochlorperazine Maleate [Compazine] 10 mg PO TID PRN #15 tablet 10/02/18 [Rx] Patient Handouts: Dehydration, Adult, [id number], Viral Gastroenteritis, Adult, [id number], Diabetes Mellitus and Nutrition, Adult Forms: ED Department Discharge Referrals: PCP,None [Ordering Only Provider] - - Discharge Summary/Plan Comment DC Time >30 min.: No - Patient Data Vitals - Most Recent: Last Vital Signs Temp 37.7 C 10/02/18 05:59 Pulse 86 10/02/18 05:59 Resp 16 10/02/18 05:59 BP 187/90 H 10/02/18 05:59 Pulse Ox 98 10/02/18 05:59 Weight - Most Recent: 103.419 kg I&O - Last 24 hours: Intake & Output 10/01/18 10/02/18 10/02/18 22:59 06:59 14:59 Intake Total 3000 963 120 Output Total 500 1400 200 Balance 2500 -437 -80 Lab Results - Last 24 hrs: Laboratory Results - last 24 hr 10/01/18 10/01/18 10/01/18 Range/Units 11:25 17:27 22:48 WBC (4.0-10.0) x10^3/uL RBC (4.00-5.50) x10^6/uL Hgb (12.0-16.0) g/dL Hct (33.0-47.0) % MCV (78.0-93.0) fL MCH (26.0-32.0) pg MCHC (32.0-36.0) g/dL RDW Coeff of Juan (10.0-15.0) % Plt Count (130-400) x10^3/uL Sodium (136-145) mmol/L Potassium (3.5-5.1) mmol/L Chloride (98-107) mmol/L Carbon Dioxide (21-32) mmol/L Anion Gap (10-20) mmol/L BUN (7-18) mg/dL Creatinine (0.55-1.02) mg/dL Est Cr Clr Drug Dosing mL/min Estimated GFR (MDRD) Glucose (74-106) mg/dL POC Glucose 267 H 230 H 128 H (74-106) mg/dL Calcium (8.5-10.1) mg/dL Corrected Calcium (8.5-10.1) mg/dL Total Bilirubin (0.2-1.0) mg/dL AST (15-37) U/L ALT (14-59) U/L Alkaline Phosphatase (46-116) U/L Total Protein (6.4-8.2) g/dL Albumin (3.4-5.0) g/dL Globulin Albumin/Globulin Ratio 10/02/18 10/02/18 10/02/18 Range/Units 06:40 07:07 07:07 WBC 12.4 H (4.0-10.0) x10^3/uL RBC 4.62 (4.00-5.50) x10^6/uL Hgb 11.8 L (12.0-16.0) g/dL Hct 36.0 (33.0-47.0) % MCV 77.9 L (78.0-93.0) fL MCH 25.5 L (26.0-32.0) pg MCHC 32.8 (32.0-36.0) g/dL RDW Coeff of Juan 14.9 (10.0-15.0) % Plt Count 336 D (130-400) x10^3/uL Sodium 135 L (136-145) mmol/L Potassium 3.4 L (3.5-5.1) mmol/L Chloride 100 (98-107) mmol/L Carbon Dioxide 23 (21-32) mmol/L Anion Gap 15.4 (10-20) mmol/L BUN 10 (7-18) mg/dL Creatinine 0.7 (0.55-1.02) mg/dL Est Cr Clr Drug Dosing 85.79 mL/min Estimated GFR (MDRD) > 60 Glucose 163 H (74-106) mg/dL POC Glucose 156 H (74-106) mg/dL Calcium 7.8 L (8.5-10.1) mg/dL Corrected Calcium 8.76 (8.5-10.1) mg/dL Total Bilirubin 0.4 (0.2-1.0) mg/dL AST 15 (15-37) U/L ALT 19 (14-59) U/L Alkaline Phosphatase 88 (46-116) U/L Total Protein 6.9 (6.4-8.2) g/dL Albumin 2.8 L (3.4-5.0) g/dL Globulin 4.1 Albumin/Globulin Ratio 0.68 DAISY Results - Last 24 hrs: Microbiology 09/30/18 16:30 Urine Culture - Preliminary Urine, Clean Catch MIXED JENNIFER DAY 1 Med Orders - Current: Current Medications Enoxaparin Sodium (Lovenox) 40 mg SUBCUT DAILY@1200 [facility] Last Admin: 10/01/18 11:49 Dose: 40 mg Metoclopramide HCl (Reglan) 5 mg IVPUSH Q6H [facility] Last Admin: 10/02/18 04:15 Dose: 5 mg Insulin Aspart [ (Novolog Flexpen]) 0 units SUBCUT DAILY@1800 [facility] Last Admin: 10/01/18 17:51 Dose: 15 units Lisinopril 30mg (Own (Supply)) 0 mg PO DAILY [facility] Last Admin: 10/02/18 08:07 Dose: 30 mg Insulin Glargine/Lixisenatide [ Soliqua 100 Unit-33 Mcg/Ml] 0 units SQ DAILY [facility] Last Admin: 10/02/18 08:07 Dose: 33 units Hydrochlorothiazide. (25mg (Own Supply)) 1 each PO DAILY [facility] Last Admin: 10/02/18 08:07 Dose: 1 each Ondansetron HCl (Zofran Odt) 4 mg PO Q4H PRN PRN Reason: nausea, able to take PO Prochlorperazine Maleate (Compazine) 5 mg PO Q6H PRN PRN Reason: Nausea/Vomiting Last Admin: 10/01/18 11:37 Dose: 5 mg Sodium Chloride (Saline Flush) 10 ml FLUSH ASDIRECTED PRN PRN Reason: Keep Vein Open Discontinued Medications Sodium Chloride (Normal Saline) 1,000 mls @ 999 mls/hr IV ONETIME ONE Stop: 09/30/18 17:16 Last Admin: 09/30/18 16:29 Dose: 999 mls/hr Lactated Ringer's (Ringers, Lactated) 1,000 mls @ 100 mls/hr IV ASDIRECTED [facility] Last Infusion: 10/01/18 05:08 Dose: Infused Promethazine HCl 12.5 mg/ (Sodium Chloride) 100.5 mls @ 400 mls/hr IV ONETIME ONE Stop: 09/30/18 21:10 Last Admin: 09/30/18 22:29 Dose: 400 mls/hr Sodium Chloride (Normal Saline) 1,000 mls @ 250 mls/hr IV .BOLUS ONE Stop: 10/01/18 12:59 Last Admin: 10/01/18 09:56 Dose: 250 mls/hr Sodium Chloride (Normal Saline) 1,000 mls @ 999 mls/hr IV .BOLUS ONE Stop: 10/01/18 14:56 Last Admin: 10/01/18 14:09 Dose: 999 mls/hr Sodium Chloride (Normal Saline) 1,000 mls @ 125 mls/hr IV ONETIME ONE Stop: 10/02/18 06:59 Last Admin: 10/01/18 23:06 Dose: 125 mls/hr Non-Formulary Medication (Metformin [Glucophage Xr]) 800 mg PO BIDMEALS [facility] Ondansetron HCl (Zofran) 4 mg IVPUSH ONETIME ONE Stop: 09/30/18 16:17 Last Admin: 09/30/18 16:29 Dose: 4 mg Ondansetron HCl (Zofran) 4 mg IVPUSH ONETIME ONE Stop: 09/30/18 17:16 Last Admin: 09/30/18 17:17 Dose: 4 mg
== END 2018-10-02 10:33 | disposition home or self-care (01) ==
LOC: VM.ED 15:36 → SUPCPDRO 15:36 → VM.MS 17:50
PROVIDERS: ADMIT Nurse Practitioner Family; ATTEND Nurse Practitioner Family
DX: K52.9 Noninfective gastroenteritis and colitis, unspecified (principal); E86.0 Dehydration; I10 Essential (primary) hypertension; E11.9 Type 2 diabetes mellitus without complications; J45.909 Unspecified asthma, uncomplicated; Z79.4 Long term (current) use of insulin; Z79.899 Other long term (current) drug therapy
CPT/HCPCS: 36415; 74176; 80048; 80053; 81001; 82962; 83605; 83735; 84443; 85025; 85027; 86140; 87086; 87328; 87329; 96365; 96366; 96375; 96376; 99285; A9270; J1650; J2405; J2550; J2765; J7030; J7050; J7120; Q0164; 99217; 99220; 99225

== ENCOUNTER 2019-05-25 06:27 | Day surgery (SDC) | payer SELFPAY ==
[2019-05-25] MEDS: Lactated Ringers 1,000 ML IV SCH (06:52)
[2019-05-25] MEDS ORDERED: fentaNYL 100 MCG/2 ML SDV ONE (07:25)
[2019-05-25] MEDS ORDERED: Propofol 200 MG/20 ML SDV ONE ×2 (07:25→07:39)
[2019-05-25 08:36] VITALS: BP 122/78; PULSE 80
--- NOTE | 2019-05-25 13:48 | OR ---
PREOPERATIVE DIAGNOSES: 1. Epigastric pain. 2. Right upper quadrant pain. 3. Chronic constipation. POSTOPERATIVE DIAGNOSES: 1. Prominent gastric rugae. 2. Small sliding hiatal hernia. 3. Mild distal esophagitis. 4. Scattered left-sided diverticulosis. 5. Colon polyps. 6. Internal hemorrhoids. PROCEDURES: 1. Esophagogastroduodenoscopy. 2. Colonoscopy. ANESTHESIA: MAC. FINDINGS: EGD findings: 1. Prominent gastric rugae. 2. Small sliding hiatal hernia. 3. Mild distal esophagitis. Coloscopy findings: 1. Redundant colon. 2. Scattered diverticulosis from 30 to 50 cm. 3. Two internal hemorrhoids. 4. Benign-appearing colon polyp at 80 cm. 5. Benign-appearing colon polyp at 25 cm. DETAILS OF PROCEDURE: After obtaining informed consent, the patient was brought to the operating room and placed under monitored anesthesia care. The EGD scope was inserted into the mouth and the esophagus was intubated and passed into the stomach. I did note rather large gastric rugae. There was no inflammation in the stomach. There were no ulcers. There was no obvious source of abdominal pain. We then intubated the pylorus which appeared normal. The antrum appeared normal. The D1, D2, and D3 portions of the duodenum were normal. We did take antral biopsy. We then retroflexed the scope and this appeared normal. We then withdrew the scope slowly up through the GE junction which did reveal a small sliding hiatal hernia approximately 2 cm. There was some distal esophagitis which was biopsied. The stomach was then suctioned. I did note quite a bit of retained liquid in the stomach. At this point, we repositioned the patient and performed a colonoscopy. The scope was inserted into the anus after a digital rectal exam and traversed all the way to the cecum with ease. We did note scattered small diverticula from 30 to 50 cm. There was no inflammation and no obvious cause of abdominal pain. I did find 2 polyps which were small and of benign appearance. These were removed at 80 and 25 cm with biopsy forceps. I then retroflexed the scope in the rectum and we did find some internal hemorrhoids which were not bleeding. The cecum was confirmed with pictures of the appendiceal orifice. RECOMMENDATIONS: In regard to the patient's abdominal pain and poorly- controlled diabetes, consideration of a gastric emptying study could be entertained, also starting the patient on a promotility agent such as Reglan or erythromycin may be helpful. The patient should be trialed on PPI or other medication. In regard to the patient's constipation, there is no mechanical cause for this. However, given the patient's diabetes, she may have some element of colonic inertia. I do recommend fiber supplementation with a promotility agent. Otherwise, consider Gastroenterology consultation. CJM: 05/25/2019 08:13:45 MODL: 05/25/2019 13:41:15 /[id number]
== END 2019-05-25 09:00 | disposition home or self-care (01) ==
LOC: VM.SDS 06:27
PROVIDERS: ATTEND Surgery
DX: K63.5 Polyp of colon (principal); K29.50 Unspecified chronic gastritis without bleeding; K20.9 Esophagitis, unspecified; K31.89 Other diseases of stomach and duodenum; K44.9 Diaphragmatic hernia without obstruction or gangrene; K57.30 Diverticulosis of large intestine without perforation or abscess without bleeding; K64.8 Other hemorrhoids; I12.9 Hypertensive chronic kidney disease with stage 1 through stage 4 chronic kidney disease, or unspecified chronic kidney disease; E11.22 Type 2 diabetes mellitus with diabetic chronic kidney disease; N18.3 Chronic kidney disease, stage 3 (moderate); E78.5 Hyperlipidemia, unspecified; E78.00 Pure hypercholesterolemia, unspecified; D50.9 Iron deficiency anemia, unspecified; J45.909 Unspecified asthma, uncomplicated; E66.09 Other obesity due to excess calories; Z68.41 Body mass index [BMI] 40.0-44.9, adult; Z87.891 Personal history of nicotine dependence; Z79.4 Long term (current) use of insulin; Z79.899 Other long term (current) drug therapy; Z88.8 Allergy status to other drugs, medicaments and biological substances
CPT/HCPCS: 00813; 43239; 45380; 82962; J2704; J3010; J7120

== ENCOUNTER 2020-10-10 17:52 | Emergency (ER) | payer MEDICAID ==
[2020-10-10] MEDS ORDERED: diphenhydrAMINE 50 MG/ML SDV IVPUSH ONE ×2 (18:13→20:19)
[2020-10-10] MEDS ORDERED: Promethazine 12.5 MG in Sodium Chloride 0.9% 100 ML IV ONE (18:13)
[2020-10-10 18:18] VITALS: BP 141/72; PULSE 84
[2020-10-10] MEDS ORDERED: Lactated Ringers 1,000 ML IV ONE ×2 (18:23→20:22)
[2020-10-10] MEDS ORDERED: Promethazine 25 MG/ML SDV ONE (18:30)
[2020-10-10 18:31] LABS: O2 SATURATION VENOUS 81 %; PCO2 VENOUS 32 mmHG (41-51); PH,VENOUS 7.45 pH (7.33-7.43); PO2 VENOUS 42 mmHG
[2020-10-10 18:32] LABS: BASE EXCESS VENOUS -2 mmol/L ((-2)-3); BICARBONATE,VENOUS 22 mmol/L (22-29)
--- NOTE | 2020-10-10 18:41 | EDM.PDOC ---
ED HPI GENERAL MEDICAL PROBLEM - General Chief Complaint: Gastrointestinal Problem Stated Complaint: N/V Time Seen by Provider: 10/10/20 18:00 Source of Information: Reports: Patient History Limitations: Reports: No Limitations - History of Present Illness INITIAL COMMENTS - FREE TEXT/NARRATIVE: Patient comes emergency department today from the clinic for further evaluation of nausea and vomiting. This patient has a past medical history of type 2 diabetes who is on Victoza on lisinopril and Lantus. She also has a history of hypercholesteremia hypertension class III severe obesity chronic constipation stage IIIb chronic kidney disease. About once or twice a year she gets these episodes where she has nausea and vomiting. This started yesterday afternoon. She started vomiting at home. She was unable to keep anything down. She attempted to eat and drink multiple things after throwing up and then it kept coming up. She has not had any fever or chills. No chest pain no shortness of breath or difficulty breathing. She has no abdominal pain other than when she has vomiting. She denies any hematuria dysuria or urinary frequency. She denies any black tarry stools or diarrhea. She relates her blood sugars have been a little bit higher than typical. She has never been in DKA. Looking at her medication list she is on metoclopramide qid with meals and there is no mentioning of diabetic gastroparesis on her diagnosises. ALso she has a hiatal hernia - Related Data Allergies Allergy/AdvReac Type Severity Reaction Status Date / Time metformin Allergy Nausea and Verified 10/10/20 18:07 Vomiting Home Meds: Home Meds Lisinopril 30 mg PO DAILY 09/30/18 [History] hydroCHLOROthiazide [Hydrochlorothiazide] 25 mg PO DAILY 09/30/18 [History] Esomeprazole Magnesium [Nexium] 40 mg PO DAILY 05/16/19 [History] Ferrous Sulfate 325 mg PO BID 05/16/19 [History] Insulin Lispro [HumaLOG] 20 unit SQ TID 05/16/19 [History] Docusate Sodium [Colace] 100 mg PO DAILY 10/10/20 [History] Insulin Glarg,Human.Rec.Analog [Lantus Solostar] 30 mg SQ BID 10/10/20 [History] Liraglutide [Victoza 2-Zackery] 1.8 mg SQ DAILY 10/10/20 [History] Metoclopramide HCl 5 mg PO TID 10/10/20 [History] Metoclopramide HCl [Reglan] 10 mg PO QIDACANDBED #15 tablet 10/10/20 [Rx] Ondansetron [Ondansetron Odt] 4 mg PO TID PRN #12 tab.rapdis 10/10/20 [Rx] Past Medical History HEENT History: Reports: None Cardiovascular History: Reports: High Cholesterol, Hypertension Respiratory History: Reports: Other (See Below) Other Respiratory History: Cat allergy Gastrointestinal History: Reports: Chronic Constipation Other Gastrointestinal History: Liver Masses. dyspepsia. elevated liver functions Genitourinary History: Reports: Chronic Renal Insuffiency, Other (See Below) Other Genitourinary History: History of kidney injury. Isolated proteinuria with morphologic lesion RENT COLLECTOR History: Reports: , Other (See Below) Other RENT COLLECTOR History: Tubal ligation Musculoskeletal History: Reports: None Neurological History: Reports: None Psychiatric History: Reports: Other (See Below) Other Psychiatric History: High risk medication use Endocrine/Metabolic History: Reports: Diabetes, Type II, Obesity/BMI 30+ Hematologic History: Reports: Anemia, Other (See Below) Other Hematologic History: Iron deficiency anemia secondary to inadequate dietary iron intake Immunologic History: Reports: None - Infectious Disease History Infectious Disease History: Reports: Chicken Pox - Past Surgical History HEENT Surgical History: Reports: Adenoidectomy, Tonsillectomy Cardiovascular Surgical History: Reports: None Respiratory Surgical History: Reports: None GI Surgical History: Reports: Cholecystectomy Female Surgical History: Reports: Tubal Ligation Endocrine Surgical History: Reports: None Musculoskeletal Surgical History: Reports: None Social & Family History - Family History Family Medical History: No Pertinent Family History Endocrine/Metabolic: Reports: Diabetes, type II - Caffeine Use Caffeine Use: Reports: Coffee, Soda ED ROS GENERAL - Review of Systems Review Of Systems: Comprehensive ROS is negative, except as noted in HPI. ED EXAM, GI/ABD - Physical Exam Exam: See Below Exam Limited By: No Limitations General Appearance: Alert, WD/WN, No Apparent Distress Eyes: Bilateral: EOMI Respiratory/Chest: No Respiratory Distress, Lungs Clear, Normal Breath Sounds, No Accessory Muscle Use, Chest Non-Tender Cardiovascular: Normal Peripheral Pulses, Regular Rate, Rhythm GI/Abdominal Exam: Normal Bowel Sounds, Soft, Non-Tender, No Organomegaly, No Distention, Pelvis Stable (Female) Exam: Deferred Rectal (Female) Exam: Deferred Back Exam: Normal Inspection, Full Range of Motion Extremities: Normal Inspection, Normal Range of Motion, Non-Tender, No Pedal Edema, Normal Capillary Refill Neurological: Alert, Oriented, CN II-XII Intact, Normal Cognition, No Motor/Se nsory Deficits Psychiatric: Normal Affect, Normal Mood Skin Exam: Warm, Dry, Intact, Normal Color, No Rash Lymphatic: No Adenopathy Course - Vital Signs Last Recorded V/S: Last Vital Signs Temp 97.2 F 10/10/20 18:00 Pulse 84 10/10/20 18:00 Resp 16 10/10/20 18:00 BP 141/72 H 10/10/20 18:00 Pulse Ox 97 10/10/20 18:00 - Orders/Labs/Meds Orders: Active Orders 24 hr Category Date Time Status B-HYDROXYBUTYRATE [REF] Stat Lab 10/10/20 18:19 Received Labs: Laboratory Tests 10/10/20 10/10/20 10/10/20 Range/Units 18:19 18:19 18:19 WBC 14.6 H (4.0-10.0) x10^3/uL RBC 4.48 (4.00-5.50) x10^6/uL Hgb 11.9 L (12.0-16.0) g/dL Hct 36.7 (33.0-47.0) % MCV 81.9 D (78.0-93.0) fL MCH 26.6 (26.0-32.0) pg MCHC 32.4 (32.0-36.0) g/dL RDW Coeff of Juan 14.4 (10.0-15.0) % Plt Count 336 (130-400) x10^3/uL Neut % (Auto) 87.1 H (50.0-80.0) % Lymph % (Auto) 9.3 L (25.0-50.0) % V[place] % (Auto) 3.5 (2.0-11.0) % Eos % (Auto) 0.0 (0.0-4.0) % Baso % (Auto) 0.1 L (0.2-1.2) % VBG pH 7.45 H (7.33-7.43) pH VBG pCO2 32 L (41-51) mmHG VBG pO2 42 mmHG VBG HCO3 22 (22-29) mmol/L VBG Total CO2 22 L (23-30) mmol/L VBG O2 Saturation 81 % VBG Base Excess -2 ((-2)-3) mmol/L Lactic Acid (0.4-2.0) mmol/L Magnesium 1.9 (1.8-2.4) mg/dL Total Bilirubin 0.4 (0.2-1.0) mg/dL Direct Bilirubin 0.12 (0.00-0.20) mg/dL Indirect Bilirubin 0.28 AST 20 (15-37) U/L ALT 23 (14-59) U/L Alkaline Phosphatase 96 (46-116) U/L C-Reactive Protein 1.9 H (<=0.9) mg/dL Total Protein 7.6 (6.4-8.2) g/dL Albumin 3.2 L (3.4-5.0) g/dL Globulin 4.4 Albumin/Globulin Ratio 0.73 Lipase 161 (73-393) U/L Urine Color (YELLOW) Urine Appearance (CLEAR) Urine pH (5.0-8.0) Ur Specific Oakley Urine Protein (NEGATIVE) mg/dL Urine Glucose (UA) (NEGATIVE) mg/dL Urine Ketones (NEGATIVE) mg/dL Urine Occult Blood (NEGATIVE) Urine Nitrite (NEGATIVE) Urine Bilirubin (NEGATIVE) Urine Urobilinogen (0.2) EU/dL Ur Leukocyte Esterase (NEGATIVE) U Hyaline Cast (Auto) Urine RBC (NOT SEEN) /HPF Urine WBC (NOT SEEN) /HPF Ur Squamous Epith Cells (NOT SEEN) /HPF Amorphous Sediment Urine Bacteria (NOT SEEN) /HPF Urine Mucus (NOT SEEN) /LPF 10/10/20 10/10/20 Range/Units 18:19 20:18 WBC (4.0-10.0) x10^3/uL RBC (4.00-5.50) x10^6/uL Hgb (12.0-16.0) g/dL Hct (33.0-47.0) % MCV (78.0-93.0) fL MCH (26.0-32.0) pg MCHC (32.0-36.0) g/dL RDW Coeff of Jaun (10.0-15.0) % Plt Count (130-400) x10^3/uL Neut % (Auto) (50.0-80.0) % Lymph % (Auto) (25.0-50.0) % V[place] % (Auto) (2.0-11.0) % Eos % (Auto) (0.0-4.0) % Baso % (Auto) (0.2-1.2) % VBG pH (7.33-7.43) pH VBG pCO2 (41-51) mmHG VBG pO2 mmHG VBG HCO3 (22-29) mmol/L VBG Total CO2 (23-30) mmol/L VBG O2 Saturation % VBG Base Excess ((-2)-3) mmol/L Lactic Acid 1.8 (0.4-2.0) mmol/L Magnesium (1.8-2.4) mg/dL Total Bilirubin (0.2-1.0) mg/dL Direct Bilirubin (0.00-0.20) mg/dL Indirect Bilirubin AST (15-37) U/L ALT (14-59) U/L Alkaline Phosphatase (46-116) U/L C-Reactive Protein (<=0.9) mg/dL Total Protein (6.4-8.2) g/dL Albumin (3.4-5.0) g/dL Globulin Albumin/Globulin Ratio Lipase (73-393) U/L Urine Color Dark yellow H (YELLOW) Urine Appearance Slightly cloudy H (CLEAR) Urine pH 5.0 (5.0-8.0) Ur Specific Oakley >=1.030 Urine Protein 30 H (NEGATIVE) mg/dL Urine Glucose (UA) 100 H (NEGATIVE) mg/dL Urine Ketones 15 H (NEGATIVE) mg/dL Urine Occult Blood Negative (NEGATIVE) Urine Nitrite Negative (NEGATIVE) Urine Bilirubin Small H (NEGATIVE) Urine Urobilinogen 0.2 (0.2) EU/dL Ur Leukocyte Esterase Negative (NEGATIVE) U Hyaline Cast (Auto) Few Urine RBC 0-5 (NOT SEEN) /HPF Urine WBC 0-5 (NOT SEEN) /HPF Ur Squamous Epith Cells Few H (NOT SEEN) /HPF Amorphous Sediment Occasional Urine Bacteria Rare (NOT SEEN) /HPF Urine Mucus Occasional H (NOT SEEN) /LPF Meds: Medications Discontinued Medications Generic Name Dose Route Start Last Admin Trade Name Freq PRN Reason Stop Dose Admin Diphenhydramine HCl 25 mg 10/10/20 18:13 10/10/20 18:22 Diphenhydramine 50 Mg/Ml Sdv IVPUSH 10/10/20 18:14 25 mg ONETIME ONE Administration Diphenhydramine HCl 25 mg 10/10/20 20:19 10/10/20 20:24 Diphenhydramine 50 Mg/Ml Sdv IVPUSH 10/10/20 20:20 25 mg ONETIME ONE Administration Haloperidol Lactate 2.5 mg 10/10/20 21:56 10/10/20 22:01 Haloperidol Lactate 5 Mg/Ml Sdv IV 10/10/20 21:57 2.5 mg ONETIME ONE Administration Promethazine HCl 12.5 mg/ 100.5 mls @ 400 mls/hr 10/10/20 18:13 10/10/20 18:23 Sodium Chloride IV 10/10/20 18:28 400 mls/hr ONETIME ONE Administration Lactated Ringer's 1,000 mls @ 999 mls/hr 10/10/20 18:23 10/10/20 17:55 Ringers, Lactated IV 10/10/20 19:23 999 mls/hr ONETIME ONE Administration Lactated Ringer's 1,000 mls @ 999 mls/hr 10/10/20 20:22 10/10/20 20:24 Ringers, Lactated IV 10/10/20 21:22 999 mls/hr ONETIME ONE Administration Metoclopramide HCl 10 mg 10/10/20 20:19 10/10/20 20:24 Metoclopramide 10 Mg/2 Ml Sdv IVPUSH 10/10/20 20:20 10 mg ONETIME ONE Administration Ondansetron HCl 4 mg 10/10/20 23:24 10/10/20 23:31 Ondansetron 4 Mg/2 Ml Sdv IV 10/10/20 23:25 4 mg ONETIME ONE Administration Ondansetron HCl 1 packet 10/10/20 23:24 10/10/20 23:30 Take Home: Ondansetron 4 Mg Tab.Dis, 2 Tab Pack PO 10/10/20 23:25 1 packet ONETIME ONE Administration Promethazine HCl Confirm 10/10/20 18:30 06/09/21 18:23 Promethazine 25 Mg/Ml Sdv Administered 10/10/20 18:31 Not Given Dose 25 mg .ROUTE .STK-MED ONE - Radiology Interpretation Free Text/Narrative:: X-ray of the abdomen per radiology shows no acute findings in the abdomen. - Re-Assessments/Exams Free Text/Narrative Re-Assessment/Exam: 10/10/20 18:39 Laboratory evaluation from the clinic. CBC with a WBC of 14.5, hemoglobin 12.5 platelets 359. No segmented or banded neutrophils. BMP with a glucose of 221, BUN 20, creatinine 1.43 sodium 136 potassium 4.6 chloride 100 carbon dioxide 22 anion gap 19 calcium 9.7 GFR 39. Continued labs drawn to include a lipase hepatic panel urinalysis CRP and lactic acid. IV LR 1 L wide open. Patient was actively vomiting when I was in the room. 25 mg of Benadryl IV push. 12.5 mg of Phenergan IV push. 10/10/20 20:05 Lactic acid normal 1.8 Magnesium 1.9 CRP minimally elevated at 1.9 Lipase 161. Venous blood gas pH 7.45, PCO2 32, bicarb 22, base excess -2 no signs of DKA. 10/10/20 20:21 She continued to have bouts of nausea vomiting and retching. I will give her Benadryl and reglan for possible diabetic gastroparesis. She felt much better after the benadryl and reglan. and would like to try and go home. She has urinated x 2. Although when she sat up to get ready to go home. She started to vomit again. Thick green bile like vomit. Re-examination of her abd is a soft non-tender non- distended abd with regular if not more frequent bowel sounds. No tenderness. She was given 2.5mg of Haldol IV and we will complete a flat and upright of the abd as well. She does have a history of constipation where she only has about 1 bowel movement a week but she has no pressure bloating distention. She is passing gas. She once again and resolution of the nausea and vomiting following the Haldol and she was able to rest comfortably and even move to the x-ray department without any concerns. X-ray of the abdomen is negative per radiology. The patient would like to go home she does feel quite a bit better. She does get a little nauseated when moving although she would rather go home. I did offer observation for intractable nausea and vomiting without a cause and she refused. She would rather go home. We will discharge home with zofran and an increase in her reglan as well for her diabetic gastroparesis. If she is unable to keep things down she needs to return. Discharge instructions as below are explained to the patient she is comfortable with this plan and her questions are answered. Departure - Departure Time of Disposition: 23:20 Disposition: Home, Self-Care 01 Clinical Impression: Dehydration, CESIA (acute kidney injury), Diabetic gastroparesis associated with type 2 diabetes mellitus Nausea & vomiting Qualifiers: Vomiting type: unspecified Vomiting Intractability: non-intractable Qualified Code(s): R11.2 - Nausea with vomiting, unspecified - Discharge Information Prescriptions: Ondansetron [Ondansetron Odt] 4 mg PO TID PRN #12 tab.rapdis PRN Reason: Nausea/Vomiting Metoclopramide HCl [Reglan] 10 mg PO QIDACANDBED #15 tablet Instructions: Nausea and Vomiting, Adult, [id number], Dehydration, Adult, [id number], Gastroparesis Referrals: Padmini Norris MD [Primary Care Provider] - Forms: ED Department Discharge Additional Instructions: Home rest tonight. Zofran 1 tablet every 6 hrs as needed for nausea. Take home pack given to the patient and RX sent to your pharmacy. Start in the morning with small sips of water. Slowly with very small amounts. Then slowly advance. Easy diet at home. Nothing fatty spicy or rich. No dairy products until symptom free for 48 hrs. Increase your Reglan to 10 mg prior to meals to help with the diabetic gastroparesis. RX sent to your pharmacy. Slowly advance your diet as tolerated. If nausea return. Take the zofran and then nothing until symptoms resolve and then start again from the beginning with small sips of water. Return to the ED if new or worsening symptoms. Follow up with PCP in the next 2-4 days if not improving sooner if worse. Sepsis Event Note (ED) - Evaluation Sepsis Screening Result: No Definite Risk - My Orders Last 24 Hours: My Active Orders 10/10/20 18:19 B-HYDROXYBUTYRATE [REF] Stat - Assessment/Plan Last 24 Hours: My Active Orders 10/10/20 18:19 B-HYDROXYBUTYRATE [REF] Stat
[2020-10-10] MEDS ORDERED: Metoclopramide 10 MG/2 ML SDV IVPUSH ONE (20:19)
[2020-10-10] MEDS ORDERED: Haloperidol Lactate 5 MG/ML SDV IV ONE (21:56)
[2020-10-10] MEDS ORDERED: Ondansetron 4 MG/2 ML SDV IV ONE (23:24)
[2020-10-10] MEDS ORDERED: Take Home: Ondansetron 4 MG Tab.DIS, 2 Tab Pack PO ONE (23:24)
--- NOTE | 2020-10-11 07:40 | CR ---
[id number] RAD/RAD Abd Flat and Upright 2V EXAM: RAD Abd Flat and Upright 2V INDICATION: INTRACTABLE NAUSEA AND VOMITING, ?SBO COMPARISON: None. DISCUSSION: Unobstructed bowel gas pattern. No radiographically evident pneumoperitoneum. IMPRESSION: No acute findings in the abdomen. Rory Adam DO 10/11/20 0739 Thank you for allowing us to participate in the care of your patient.
== END 2020-10-10 23:41 | disposition home or self-care (01) ==
LOC: VM.ED 17:52
DX: N17.9 Acute kidney failure, unspecified (principal); E86.0 Dehydration; R11.2 Nausea with vomiting, unspecified; E11.43 Type 2 diabetes mellitus with diabetic autonomic (poly)neuropathy; K31.84 Gastroparesis; I12.9 Hypertensive chronic kidney disease with stage 1 through stage 4 chronic kidney disease, or unspecified chronic kidney disease; E11.22 Type 2 diabetes mellitus with diabetic chronic kidney disease; N18.9 Chronic kidney disease, unspecified; E66.9 Obesity, unspecified; Z68.41 Body mass index [BMI] 40.0-44.9, adult; Z88.8 Allergy status to other drugs, medicaments and biological substances; Z79.4 Long term (current) use of insulin
CPT/HCPCS: 36415; 74019; 80076; 81001; 82010; 82803; 83605; 83690; 83735; 85025; 86140; 96374; 96375; 96376; 99284-25; A9270-GY; J1200; J1630; J2405; J2550; J2765; J7120

== ENCOUNTER 2020-10-12 11:21 | Emergency (ER) | payer MEDICAID ==
[2020-10-12 11:31] VITALS: BP 162/88; PULSE 90
[2020-10-12] MEDS ORDERED: Promethazine 12.5 MG in Sodium Chloride 0.9% 100 ML IV ONE (11:43)
[2020-10-12] MEDS ORDERED: Sodium Chloride 0.9% 1,000 ML IV SCH (11:45)
[2020-10-12 12:34] LABS: ANION GAP 11.7 mmol/L (5-15); CHLORIDE,CL 100 mmol/L (98-107); SODIUM,NA 137 mmol/L (136-145)
== END 2020-10-12 15:24 | disposition home or self-care (01) ==
LOC: VM.ED 11:21
DX: E86.0 Dehydration (principal); R11.2 Nausea with vomiting, unspecified; E78.00 Pure hypercholesterolemia, unspecified; I12.9 Hypertensive chronic kidney disease with stage 1 through stage 4 chronic kidney disease, or unspecified chronic kidney disease; E11.22 Type 2 diabetes mellitus with diabetic chronic kidney disease; N18.9 Chronic kidney disease, unspecified; E66.9 Obesity, unspecified; Z79.4 Long term (current) use of insulin; Z79.899 Other long term (current) drug therapy; Z88.8 Allergy status to other drugs, medicaments and biological substances
CPT/HCPCS: 36415; 74019; 80053; 81001; 82150; 83690; 85025; 86140; 96365; 99284; J2550; J7030

== ENCOUNTER 2021-03-01 17:04 | Emergency (ER) | payer MEDICAID ==
[2021-03-01] MEDS ORDERED: Sodium Chloride 0.9% 1,000 ML IV ONE ×3 (17:07→19:30)
[2021-03-01] MEDS ORDERED: Sodium Chloride 0.9% 10 ML Syringe FLUSH PRN (17:07)
[2021-03-01] MEDS ORDERED: Ondansetron 4 MG/2 ML SDV IVPUSH ONE (17:08)
--- NOTE | 2021-03-01 17:23 | EDM.PDOC ---
ED HPI GENERAL MEDICAL PROBLEM - General Stated Complaint: VOMITING Time Seen by Provider: 03/01/21 17:23 Source of Information: Reports: Patient History Limitations: Reports: No Limitations - History of Present Illness INITIAL COMMENTS - FREE TEXT/NARRATIVE: Patient presents to the ED with vomiting since yesterday. States she gets this at least once a year. She has never found a reason for it, but usually receives IV fluids, nausea medication and gets better. Has had her flu vaccination, no covid vaccination. Stays at home. Last bowel movement 2 days ago and this is normal for her. ABdominal muscles are sore from vomiting all day, but no other specific pain. Not able to keep her medication down for at least today. Did check her blood glucose and it was 220 prior to arrival. She gave herself 20 units of lantus prior to arrival Onset: Sudden Onset Date: 02/28/21 Duration: Day(s):, Getting Worse Associated Symptoms: Reports: Loss of Appetite - Related Data Allergies Allergy/AdvReac Type Severity Reaction Status Date / Time metformin Allergy Nausea and Verified 03/01/21 18:15 Vomiting Home Meds: Home Meds Lisinopril 30 mg PO DAILY 09/30/18 [History] hydroCHLOROthiazide [Hydrochlorothiazide] 25 mg PO DAILY 09/30/18 [History] Esomeprazole Magnesium [Nexium] 40 mg PO DAILY 05/16/19 [History] Ferrous Sulfate 325 mg PO BID 05/16/19 [History] Insulin Lispro [HumaLOG] 20 unit SQ TID 05/16/19 [History] Docusate Sodium [Colace] 100 mg PO DAILY 10/10/20 [History] Insulin Glarg,Human.Rec.Analog [Lantus Solostar] 30 mg SQ BID 10/10/20 [History] Liraglutide [Victoza 2-Zackery] 1.8 mg SQ DAILY 10/10/20 [History] Metoclopramide HCl 5 mg PO TID 10/10/20 [History] Metoclopramide HCl [Reglan] 10 mg PO QIDACANDBED #15 tablet 10/10/20 [Rx] Ondansetron [Ondansetron Odt] 4 mg PO TID PRN #12 tab.rapdis 10/10/20 [Rx] Past Medical History HEENT History: Reports: None Cardiovascular History: Reports: High Cholesterol, Hypertension Respiratory History: Reports: Other (See Below) Other Respiratory History: Cat allergy Gastrointestinal History: Reports: Chronic Constipation Other Gastrointestinal History: Liver Masses. dyspepsia. elevated liver functions Genitourinary History: Reports: Chronic Renal Insuffiency, Other (See Below) Other Genitourinary History: History of kidney injury. Isolated proteinuria with morphologic lesion OUTPATIENT PSYCHIATRIST History: Reports: , Other (See Below) Other OUTPATIENT PSYCHIATRIST History: Tubal ligation Musculoskeletal History: Reports: None Neurological History: Reports: None Psychiatric History: Reports: Other (See Below) Other Psychiatric History: High risk medication use Endocrine/Metabolic History: Reports: Diabetes, Type II, Obesity/BMI 30+ Hematologic History: Reports: Anemia, Other (See Below) Other Hematologic History: Iron deficiency anemia secondary to inadequate dietary iron intake Immunologic History: Reports: None - Infectious Disease History Infectious Disease History: Reports: Chicken Pox - Past Surgical History HEENT Surgical History: Reports: Adenoidectomy, Tonsillectomy GI Surgical History: Reports: Cholecystectomy Female Surgical History: Reports: Tubal Ligation Social & Family History - Family History Family Medical History: No Pertinent Family History Endocrine/Metabolic: Reports: Diabetes, type II - Tobacco Use Tobacco Use Status *Q: Never Tobacco User - Caffeine Use Caffeine Use: Reports: Coffee, Soda - Alcohol Use Alcohol Use History: No Alcohol Use in Last Twelve Months: No - Recreational Drug Use Recreational Drug Use: No Drug Use in Last 12 Months: No ED ROS GENERAL - Review of Systems Review Of Systems: See Below Constitutional: Reports: Weakness, Fatigue, Decreased Appetite HEENT: Denies: Rhinitis, Sinus Problem, Throat Pain Respiratory: Reports: No Symptoms. Denies: Shortness of Breath, Cough Cardiovascular: Denies: Dyspnea on Exertion GI/Abdominal: Reports: Anorexia, Constipation, Decreased Appetite, Nausea, Vomiting. Denies: Black Stool, Bloody Stool, Hematemesis, Hematochezia : Reports: No Symptoms Musculoskeletal: Reports: No Symptoms Skin: Reports: No Symptoms Neurological: Reports: No Symptoms Psychiatric: Reports: No Symptoms ED EXAM, GI/ABD - Physical Exam Exam: See Below Exam Limited By: No Limitations General Appearance: Alert, WD/WN, No Apparent Distress, Active Emesis Eyes: Bilateral: EOMI Ears: Normal External Exam Nose: Normal Inspection Throat/Mouth: Normal Inspection, Normal Lips, Normal Voice, No Airway Compromise, Other (dry mucous membranes) Head: Atraumatic Neck: Normal Inspection Respiratory/Chest: No Respiratory Distress, Lungs Clear, Normal Breath Sounds Cardiovascular: Normal Peripheral Pulses, Regular Rate, Rhythm, No Edema, Tachycardia GI/Abdominal Exam: Abnormal Bowel Sounds (absent). No: No Abnormal Bruit, No Mass, Rigid, Rebound, Tender Extremities: Normal Inspection, Normal Range of Motion, No Pedal Edema Neurological: Alert, Oriented, CN II-XII Intact, Normal Cognition Skin Exam: Diaphoretic (midly) Course - Vital Signs Last Recorded V/S: Last Vital Signs Temp 35.3 C L 03/01/21 18:04 Pulse 107 H 03/01/21 18:04 Resp 16 03/01/21 18:04 BP 151/86 H 03/01/21 18:04 Pulse Ox 97 03/01/21 18:04 - Orders/Labs/Meds Orders: Active Orders 24 hr Category Date Time Status Abdomen Pelvis w Cont [CT] Stat Exams 03/01/21 17:38 Stop Req Sodium Chloride 0.9% [Saline Flush] Med 03/01/21 17:07 Active 10 ml FLUSH ASDIRECTED PRN Peripheral IV Insertion Adult [OM.PC] Routine Oth 03/01/21 17:07 Ordered Medication Orders Sodium Chloride (Sodium Chloride 0.9% 10 Ml Syringe) 10 ml FLUSH ASDIRECTED PRN PRN Reason: Keep Vein Open Labs: Laboratory Tests 03/01/21 03/01/21 03/01/21 Range/Units 16:40 17:27 17:27 WBC 13.5 H (4.0-10.0) x10^3/uL RBC 4.89 (4.00-5.50) x10^6/uL Hgb 13.2 (12.0-16.0) g/dL Hct 39.5 (33.0-47.0) % MCV 80.8 (78.0-93.0) fL MCH 27.0 (26.0-32.0) pg MCHC 33.4 (32.0-36.0) g/dL RDW Coeff of Jaun 13.3 (10.0-15.0) % Plt Count 361 (130-400) x10^3/uL Immature Gran % (Auto) 0.80 H (0.00-0.43) % Neut % (Auto) 90.2 H (50.0-80.0) % Lymph % (Auto) 7.1 L (25.0-50.0) % [place] % (Auto) 1.8 L (2.0-11.0) % Eos % (Auto) 0.0 (0.0-4.0) % Baso % (Auto) 0.1 L (0.2-1.2) % Neut # (Auto) 12.2 H (1.8-7.7) x10^3/uL Lymph # (Auto) 1.0 (1.0-4.8) x10^3/uL [place] # (Auto) 0.3 (0.0-0.8) x10^3/uL Eos # (Auto) 0.0 (0.0-0.5) x10^3/uL Baso # (Auto) 0.0 (0.0-0.2) x10^3/uL Immature Gran # (Auto) 0.11 H (0.00-0.07) x10^3/uL Sodium 135 L (136-145) mmol/L Potassium 4.5 (3.5-5.1) mmol/L Chloride 99 (98-107) mmol/L Carbon Dioxide 24 (21-32) mmol/L Anion Gap 16.5 H (5-15) mmol/L BUN 24 H (7-18) mg/dL Creatinine 1.5 H (0.55-1.02) mg/dL Est Cr Clr Drug Dosing TNP Estimated GFR (MDRD) 37 Glucose 257 H (70-99) mg/dL Lactic Acid (0.4-2.0) mmol/L Calcium 9.6 (8.5-10.1) mg/dL Corrected Calcium 10.0 (8.5-10.1) mg/dL Magnesium (1.8-2.4) mg/dL Total Bilirubin 0.4 (0.2-1.0) mg/dL AST 20 (15-37) U/L ALT 21 (14-59) U/L Alkaline Phosphatase 123 H (46-116) U/L C-Reactive Protein 3.0 H (<=0.9) mg/dL Total Protein 7.9 (6.4-8.2) g/dL Albumin 3.5 (3.4-5.0) g/dL Globulin 4.4 Albumin/Globulin Ratio 0.80 Lipase 195 (73-393) U/L Urine Color Dark yellow H (YELLOW) Urine Appearance Cloudy H (CLEAR) Urine pH 5.5 (5.0-8.0) Ur Specific [place] >=1.030 Urine Protein 100 H (NEGATIVE) mg/dL Urine Glucose (UA) Negative (NEGATIVE) mg/dL Urine Ketones 15 H (NEGATIVE) mg/dL Urine Occult Blood Large H (NEGATIVE) Urine Nitrite Negative (NEGATIVE) Urine Bilirubin Small H (NEGATIVE) Urine Urobilinogen 0.2 (0.2) EU/dL Ur Leukocyte Esterase Negative (NEGATIVE) Urine RBC >100 H (NOT SEEN) /HPF Urine WBC 0-5 (NOT SEEN) /HPF Ur Squamous Epith Cells Few H (NOT SEEN) /HPF Urine Bacteria Rare (NOT SEEN) /HPF Urine Mucus Rare H (NOT SEEN) /LPF 03/01/21 03/01/21 Range/Units 17:27 17:27 WBC (4.0-10.0) x10^3/uL RBC (4.00-5.50) x10^6/uL Hgb (12.0-16.0) g/dL Hct (33.0-47.0) % MCV (78.0-93.0) fL MCH (26.0-32.0) pg MCHC (32.0-36.0) g/dL RDW Coeff of Juan (10.0-15.0) % Plt Count (130-400) x10^3/uL Immature Gran % (Auto) (0.00-0.43) % Neut % (Auto) (50.0-80.0) % Lymph % (Auto) (25.0-50.0) % [place] % (Auto) (2.0-11.0) % Eos % (Auto) (0.0-4.0) % Baso % (Auto) (0.2-1.2) % Neut # (Auto) (1.8-7.7) x10^3/uL Lymph # (Auto) (1.0-4.8) x10^3/uL [place] # (Auto) (0.0-0.8) x10^3/uL Eos # (Auto) (0.0-0.5) x10^3/uL Baso # (Auto) (0.0-0.2) x10^3/uL Immature Gran # (Auto) (0.00-0.07) x10^3/uL Sodium (136-145) mmol/L Potassium (3.5-5.1) mmol/L Chloride (98-107) mmol/L Carbon Dioxide (21-32) mmol/L Anion Gap (5-15) mmol/L BUN (7-18) mg/dL Creatinine (0.55-1.02) mg/dL Est Cr Clr Drug Dosing Estimated GFR (MDRD) Glucose (70-99) mg/dL Lactic Acid 2.2 H* (0.4-2.0) mmol/L Calcium (8.5-10.1) mg/dL Corrected Calcium (8.5-10.1) mg/dL Magnesium 1.9 (1.8-2.4) mg/dL Total Bilirubin (0.2-1.0) mg/dL AST (15-37) U/L ALT (14-59) U/L Alkaline Phosphatase (46-116) U/L C-Reactive Protein (<=0.9) mg/dL Total Protein (6.4-8.2) g/dL Albumin (3.4-5.0) g/dL Globulin Albumin/Globulin Ratio Lipase (73-393) U/L Urine Color (YELLOW) Urine Appearance (CLEAR) Urine pH (5.0-8.0) Ur Specific [place] Urine Protein (NEGATIVE) mg/dL Urine Glucose (UA) (NEGATIVE) mg/dL Urine Ketones (NEGATIVE) mg/dL Urine Occult Blood (NEGATIVE) Urine Nitrite (NEGATIVE) Urine Bilirubin (NEGATIVE) Urine Urobilinogen (0.2) EU/dL Ur Leukocyte Esterase (NEGATIVE) Urine RBC (NOT SEEN) /HPF Urine WBC (NOT SEEN) /HPF Ur Squamous Epith Cells (NOT SEEN) /HPF Urine Bacteria (NOT SEEN) /HPF Urine Mucus (NOT SEEN) /LPF Meds: Medications Generic Name Dose Route Start Last Admin Trade Name Freq PRN Reason Stop Dose Admin Sodium Chloride 10 ml 03/01/21 17:07 Sodium Chloride 0.9% 10 Ml Syringe FLUSH ASDIRECTED PRN Keep Vein Open Discontinued Medications Generic Name Dose Route Start Last Admin Trade Name Freq PRN Reason Stop Dose Admin Diphenhydramine HCl 25 mg 03/01/21 18:52 Diphenhydramine 50 Mg/Ml Sdv IVPUSH 03/01/21 18:53 ONETIME ONE Diphenhydramine HCl 25 mg 03/01/21 19:30 Diphenhydramine 50 Mg/Ml Sdv IVPUSH 03/01/21 19:31 ONETIME ONE Sodium Chloride 1,000 mls @ 999 mls/hr 03/01/21 17:07 03/01/21 17:36 Normal Saline IV 03/01/21 18:07 999 mls/hr ONETIME ONE Administration Promethazine HCl 12.5 mg/ 100.5 mls @ 400 mls/hr 03/01/21 17:41 03/01/21 17:56 Sodium Chloride IV 03/01/21 17:56 400 mls/hr ONETIME ONE Administration Sodium Chloride 1,000 mls @ 999 mls/hr 03/01/21 17:41 Normal Saline IV 03/01/21 18:41 ONETIME ONE Sodium Chloride 1,000 mls @ 999 mls/hr 03/01/21 19:30 03/01/21 20:07 Normal Saline IV 03/01/21 20:30 999 mls/hr ONETIME ONE Administration Metoclopramide HCl 10 mg 03/01/21 21:19 Metoclopramide 10 Mg/2 Ml Sdv IVPUSH 03/01/21 21:20 ONETIME ONE Ondansetron HCl 4 mg 03/01/21 17:08 03/01/21 17:36 Ondansetron 4 Mg/2 Ml Sdv IVPUSH 03/01/21 17:09 4 mg ONETIME ONE Administration - Radiology Interpretation Free Text/Narrative:: Ct of the abdomen and pelvis stable hypodensity in the left kideny, two simple cysts in the left ovary, no acute findings, see report - Re-Assessments/Exams Free Text/Narrative Re-Assessment/Exam: 03/01/21 17:36 patient is pale, slightly diaphoretic and actively vomiting. IV normal saline I liter bolus, zofran 4 mg IVP, blood glucose is 260 on her meter. 03/01/21 17:39 leukocytosis, will get ct of the abdomen and pelvis without contast due to her decreased gfr and borderline creatinine. 03/01/21 18:06 patient has nausea still Phenergan 125. mg IVPB. has a history of gastroparesis, takes reglan. Been more than a year since her least EGD, been on victozia for about a year. 03/01/21 18:14 lactic is 2.2, has been vomiting and is dehydrated, anion gap is barely elevated, will not repeated. Is getting two liters of fluid. nausea is improved. awaiting CT. 03/01/21 19:07 some return of the nausea, benadryl 25 mg IVP, second liter of fluid started. ketones in the urine. 03/01/21 19:20 doing a bit better. Dehydrated, seems like her gastroparesis as no other cause is found. Will give her a third liter of fluid. Has reglan to get her through the weekend. Advised use of beandryl 25 mg every 4 hours as needed for nausea and vomiting. Follow up with PCP and occupational medicine specialist 03/01/21 19:30 03/01/21 21:44 given one more dose of reglan 10 mg IVP. offered return as needed. Departure - Departure Time of Disposition: 20:30 Disposition: Home, Self-Care 01 Condition: Good Clinical Impression: Vomiting, Dehydration, Gastroparesis - Discharge Information Instructions: Nausea and Vomiting, Adult, [id number], Dehydration, Adult, [id number], Gastroparesis Referrals: Padmini Norris MD [Primary Care Provider] - Additional Instructions: Continue to use your reglan as before. Drink clear liquids to help with hydration. If you need extra nausea medication, take benadryl 25 mg every 4 hours as needed. Follow up with your PCP and occupational medicine specialist. No source for infection or vomiting was found other than your gatroparesis. continue to try to hydrate well. return as needed Sepsis Event Note (ED) - Focused Exam Vital Signs: Vital Signs Temp Pulse Resp BP Pulse Ox 03/01/21 18:04 35.3 C L 107 H 16 151/86 H 97 - My Orders Last 24 Hours: My Active Orders 03/01/21 17:07 Sodium Chloride 0.9% [Saline Flush] 10 ml FLUSH ASDIRECTED PRN Peripheral IV Insertion Adult [OM.PC] Routine 03/01/21 17:38 Abdomen Pelvis w Cont [CT] Stat - Assessment/Plan Last 24 Hours: My Active Orders 03/01/21 17:07 Sodium Chloride 0.9% [Saline Flush] 10 ml FLUSH ASDIRECTED PRN Peripheral IV Insertion Adult [OM.PC] Routine 03/01/21 17:38 Abdomen Pelvis w Cont [CT] Stat
[2021-03-01] MEDS ORDERED: Promethazine 12.5 MG in Sodium Chloride 0.9% 100 ML IV ONE (17:41)
[2021-03-01 17:54] LABS: CHLORIDE,CL 99 mmol/L (98-107); SODIUM,NA 135 mmol/L (136-145)
[2021-03-01 17:56] LABS: ANION GAP 16.5 mmol/L (5-15)
[2021-03-01 18:15] VITALS: BP 151/86; PULSE 107
[2021-03-01] MEDS ORDERED: diphenhydrAMINE 50 MG/ML SDV IVPUSH ONE ×2 (18:52→19:30)
--- NOTE | 2021-03-01 19:16 | CT ---
[id number] CT/CT Abdomen Pelvis WO IV EXAM: CT Abdomen Pelvis WO IV CLINICAL DATA: ABDOMINAL PAIN, LEUKOCYTOSIS, CM, CKD. COMPARISON STUDY: September 2018. FINDINGS: Lung bases are clear. Cholecystectomy. Liver, spleen, pancreas, and adrenal glands are unremarkable. Stable hypodensity in the left renal parenchyma (series 2 image 76). No change from 2019, consistent with benign etiology. However evaluation is limited without contrast. No hydronephrosis. Small sliding-type hiatus hernia. No bowel obstruction or inflammation. The appendix is normal. No lymphadenopathy, free fluid, or pneumoperitoneum. Either 2 closely approximated cysts or a bilobed cyst measuring 37 x 21 x 21 mm arising from the left ovary. Density is similar to that of water, most consistent with a simple cyst. Uterus and adnexal regions are otherwise unremarkable. Urinary bladder is unremarkable. Spondylosis. No acute fracture or compression deformity. IMPRESSION: No acute findings or other significant abnormality in the abdomen/pelvis. Sridhar Sheridan MD 03/01/21 [id number] Thank you for allowing us to participate in the care of your patient.
[2021-03-01] MEDS ORDERED: Metoclopramide 10 MG/2 ML SDV IVPUSH ONE (21:19)
== END 2021-03-01 21:33 | disposition home or self-care (01) ==
LOC: VM.ED 17:04
DX: E11.43 Type 2 diabetes mellitus with diabetic autonomic (poly)neuropathy (principal); K31.84 Gastroparesis; E86.0 Dehydration; E78.00 Pure hypercholesterolemia, unspecified; I12.9 Hypertensive chronic kidney disease with stage 1 through stage 4 chronic kidney disease, or unspecified chronic kidney disease; E11.22 Type 2 diabetes mellitus with diabetic chronic kidney disease; N18.9 Chronic kidney disease, unspecified; E66.9 Obesity, unspecified; Z68.41 Body mass index [BMI] 40.0-44.9, adult; Z88.8 Allergy status to other drugs, medicaments and biological substances; Z79.4 Long term (current) use of insulin; Z79.899 Other long term (current) drug therapy
CPT/HCPCS: 74176; 80053; 81001; 83605; 83690; 83735; 85025; 86140; 96374; 96375; 99284; J1200; J2405; J2550; J2765; J7030

== ENCOUNTER 2021-03-05 10:15 | Emergency (ER) | payer MEDICAID ==
[2021-03-05] MEDS ORDERED: Sodium Chloride 0.9% 10 ML Syringe FLUSH PRN (10:48)
[2021-03-05 10:51] VITALS: BP 149/86; PULSE 110
[2021-03-05] MEDS: Sodium Chloride 0.9% 1,000 ML IV SCH (11:05)
[2021-03-05] MEDS: Ondansetron 4 MG/2 ML SDV IVPUSH ONE (11:10)
[2021-03-05 11:45] LABS: ANION GAP 11.7 mmol/L (5-15)
[2021-03-05] MEDS ORDERED: Lactated Ringers 1,000 ML IV ONE (12:06)
[2021-03-05] MEDS: Metoclopramide 10 MG/2 ML SDV IVPUSH ONE (13:44)
--- NOTE | 2021-03-05 22:40 | EDM.PDOC ---
ED HPI GENERAL MEDICAL PROBLEM - General Chief Complaint: Gastrointestinal Problem Stated Complaint: THROWING UP Time Seen by Provider: 03/05/21 10:44 Source of Information: Reports: Patient History Limitations: Reports: No Limitations - History of Present Illness INITIAL COMMENTS - FREE TEXT/NARRATIVE: Pt. presents to ER with complaints of continued nausea and vomiting. Pt. has a history of gastroparesis secondary to poorly controlled DM. This is a common problem for her. She states that she has not seen GI for this in the past. Pt. denies any fever or chills. No chest pain or shortness of breath. She was seen several days ago for the same and received IV fluids and antiemetics. She had an elevated white count and lactate level at that time and underwent CT abdomen and pelvis with contrast which did not reveal any pathology. She denies any melena, hematochezia, or hematemesis. She is passing gas. Denies any localized abdominal discomfort. Onset: Today - Related Data Allergies Allergy/AdvReac Type Severity Reaction Status Date / Time metformin Allergy Nausea and Verified 03/01/21 18:15 Vomiting Home Meds: Home Meds Lisinopril 30 mg PO DAILY 09/30/18 [History] hydroCHLOROthiazide [Hydrochlorothiazide] 25 mg PO DAILY 09/30/18 [History] Esomeprazole Magnesium [Nexium] 40 mg PO DAILY 05/16/19 [History] Ferrous Sulfate 325 mg PO BID 05/16/19 [History] Insulin Lispro [HumaLOG] 20 unit SQ TID 05/16/19 [History] Docusate Sodium [Colace] 100 mg PO DAILY 10/10/20 [History] Insulin Glarg,Human.Rec.Analog [Lantus Solostar] 30 mg SQ BID 10/10/20 [History] Liraglutide [Victoza 2-Zackery] 1.8 mg SQ DAILY 10/10/20 [History] Metoclopramide HCl 5 mg PO TID 10/10/20 [History] Metoclopramide HCl [Reglan] 10 mg PO QIDACANDBED #15 tablet 10/10/20 [Rx] Ondansetron [Ondansetron Odt] 4 mg PO TID PRN #12 tab.rapdis 10/10/20 [Rx] Ondansetron [Zofran ODT] 4 mg PO Q6H PRN #15 tab.dis 03/05/21 [Rx] Past Medical History HEENT History: Reports: None Cardiovascular History: Reports: High Cholesterol, Hypertension Respiratory History: Reports: Other (See Below) Other Respiratory History: Cat allergy Gastrointestinal History: Reports: Chronic Constipation Other Gastrointestinal History: Liver Masses. dyspepsia. elevated liver functions Genitourinary History: Reports: Chronic Renal Insuffiency, Other (See Below) Other Genitourinary History: History of kidney injury. 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 Musculoskeletal History: Reports: None Neurological History: Reports: None Psychiatric History: Reports: Other (See Below) Other Psychiatric History: High risk medication use Endocrine/Metabolic History: Reports: Diabetes, Type II, Obesity/BMI 30+ Hematologic History: Reports: Anemia, Other (See Below) Other Hematologic History: Iron deficiency anemia secondary to inadequate dietary iron intake Immunologic History: Reports: None - Infectious Disease History Infectious Disease History: Reports: Chicken Pox - Past Surgical History HEENT Surgical History: Reports: Adenoidectomy, Tonsillectomy Cardiovascular Surgical History: Reports: None Respiratory Surgical History: Reports: None GI Surgical History: Reports: Cholecystectomy Female Surgical History: Reports: Tubal Ligation Endocrine Surgical History: Reports: None Musculoskeletal Surgical History: Reports: None Social & Family History - Family History Family Medical History: No Pertinent Family History Endocrine/Metabolic: Reports: Diabetes, type II - Tobacco Use Tobacco Use Status *Q: Never Tobacco User Second Hand Smoke Exposure: No - Caffeine Use Caffeine Use: Reports: Coffee, Soda - Recreational Drug Use Recreational Drug Use: No ED ROS GENERAL - Review of Systems Review Of Systems: See Below Constitutional: Reports: Fatigue, Decreased Appetite. Denies: Fever, Chills, Diaphoresis HEENT: Reports: No Symptoms Respiratory: Reports: No Symptoms Cardiovascular: Reports: No Symptoms Endocrine: Reports: No Symptoms GI/Abdominal: Reports: Anorexia, Nausea, Vomiting. Denies: Abdominal Pain, Black Stool, Bloody Stool, Hematochezia, Melena : Reports: No Symptoms Musculoskeletal: Reports: No Symptoms Skin: Reports: No Symptoms Neurological: Reports: No Symptoms Psychiatric: Reports: No Symptoms Hematologic/Lymphatic: Reports: No Symptoms Immunologic: Reports: No Symptoms ED EXAM, GENERAL - Physical Exam Exam: See Below Exam Limited By: No Limitations General Appearance: Alert, WD/WN, No Apparent Distress Head: Atraumatic, Normocephalic Neck: Normal Inspection, Supple, Non-Tender, Full Range of Motion Respiratory/Chest: No Respiratory Distress, Lungs Clear, Normal Breath Sounds, No Accessory Muscle Use, Chest Non-Tender Cardiovascular: Normal Peripheral Pulses, Regular Rate, Rhythm, No Edema, No JVD, No Murmur Peripheral Pulses: 4+: Radial (L) GI/Abdominal: Soft, Non-Tender, No Distention, No Mass (Female) Exam: Deferred Rectal (Female) Exam: Deferred Back Exam: Normal Inspection, Full Range of Motion Extremities: Normal Inspection, Normal Range of Motion, Non-Tender, No Pedal Edema, Normal Capillary Refill Neurological: Alert, Oriented, CN II-XII Intact, Normal Cognition, Normal Gait, Normal Reflexes, No Motor/Sensory Deficits Psychiatric: Normal Affect, Normal Mood Skin Exam: Warm, Dry, Intact, Normal Color, No Rash Lymphatic: No Adenopathy Course - Vital Signs Last Recorded V/S: Last Vital Signs Temp 37.0 C 03/05/21 10:44 Pulse 110 H 03/05/21 10:44 Resp 18 03/05/21 10:44 BP 149/86 H 03/05/21 10:44 Pulse Ox 98 03/05/21 10:44 - Orders/Labs/Meds Orders: Active Orders 24 hr Category Date Time Status Peripheral IV Insertion Adult [OM.PC] Routine Oth 03/05/21 10:48 Ordered Labs: Laboratory Tests 03/05/21 03/05/21 03/05/21 Range/Units 11:13 11:13 11:13 WBC 14.5 H (4.0-10.0) x10^3/uL RBC 4.43 (4.00-5.50) x10^6/uL Hgb 11.6 L D (12.0-16.0) g/dL Hct 35.6 (33.0-47.0) % MCV 80.4 (78.0-93.0) fL MCH 26.2 (26.0-32.0) pg MCHC 32.6 (32.0-36.0) g/dL RDW Coeff of Juan 13.1 (10.0-15.0) % Plt Count 386 (130-400) x10^3/uL Immature Gran % (Auto) 0.70 H (0.00-0.43) % Neut % (Auto) 78.1 (50.0-80.0) % Lymph % (Auto) 15.8 L (25.0-50.0) % Bryan % (Auto) 5.2 (2.0-11.0) % Eos % (Auto) 0.1 (0.0-4.0) % Baso % (Auto) 0.1 L (0.2-1.2) % Neut # (Auto) 11.4 H (1.8-7.7) x10^3/uL Lymph # (Auto) 2.3 (1.0-4.8) x10^3/uL Bryan # (Auto) 0.8 (0.0-0.8) x10^3/uL Eos # (Auto) 0.0 (0.0-0.5) x10^3/uL Baso # (Auto) 0.0 (0.0-0.2) x10^3/uL Immature Gran # (Auto) 0.10 H (0.00-0.07) x10^3/uL PT 10.9 (9.9-12.5) SEC INR 1.0 L (2.0-3.5) APTT (25.6-32.8) SEC Sodium 133 L (136-145) mmol/L Potassium 3.7 (3.5-5.1) mmol/L Chloride 98 (98-107) mmol/L Carbon Dioxide 27 (21-32) mmol/L Anion Gap 11.7 (5-15) mmol/L BUN 16 (7-18) mg/dL Creatinine 1.3 H (0.55-1.02) mg/dL Est Cr Clr Drug Dosing 44.71 mL/min Estimated GFR (MDRD) 43 Glucose 238 H (70-99) mg/dL Calcium 8.8 (8.5-10.1) mg/dL Corrected Calcium 9.4 (8.5-10.1) mg/dL Phosphorus 3.1 (2.6-4.7) mg/dL Magnesium 2.2 (1.8-2.4) mg/dL Total Bilirubin 0.3 (0.2-1.0) mg/dL AST 19 (15-37) U/L ALT 18 (14-59) U/L Alkaline Phosphatase 105 (46-116) U/L NT-Pro-B Natriuret Pep 47 (<=125) pg/mL Total Protein 7.2 (6.4-8.2) g/dL Albumin 3.2 L (3.4-5.0) g/dL Globulin 4.0 Albumin/Globulin Ratio 0.80 Lipase 151 (73-393) U/L TSH, Ultra Sensitive 0.503 (0.358-3.74) uIU/mL 03/05/21 Range/Units 11:13 WBC (4.0-10.0) x10^3/uL RBC (4.00-5.50) x10^6/uL Hgb (12.0-16.0) g/dL Hct (33.0-47.0) % MCV (78.0-93.0) fL MCH (26.0-32.0) pg MCHC (32.0-36.0) g/dL RDW Coeff of Juan (10.0-15.0) % Plt Count (130-400) x10^3/uL Immature Gran % (Auto) (0.00-0.43) % Neut % (Auto) (50.0-80.0) % Lymph % (Auto) (25.0-50.0) % Bryan % (Auto) (2.0-11.0) % Eos % (Auto) (0.0-4.0) % Baso % (Auto) (0.2-1.2) % Neut # (Auto) (1.8-7.7) x10^3/uL Lymph # (Auto) (1.0-4.8) x10^3/uL Bryan # (Auto) (0.0-0.8) x10^3/uL Eos # (Auto) (0.0-0.5) x10^3/uL Baso # (Auto) (0.0-0.2) x10^3/uL Immature Gran # (Auto) (0.00-0.07) x10^3/uL PT (9.9-12.5) SEC INR (2.0-3.5) APTT 24.7 L (25.6-32.8) SEC Sodium (136-145) mmol/L Potassium (3.5-5.1) mmol/L Chloride (98-107) mmol/L Carbon Dioxide (21-32) mmol/L Anion Gap (5-15) mmol/L BUN (7-18) mg/dL Creatinine (0.55-1.02) mg/dL Est Cr Clr Drug Dosing mL/min Estimated GFR (MDRD) Glucose (70-99) mg/dL Calcium (8.5-10.1) mg/dL Corrected Calcium (8.5-10.1) mg/dL Phosphorus (2.6-4.7) mg/dL Magnesium (1.8-2.4) mg/dL Total Bilirubin (0.2-1.0) mg/dL AST (15-37) U/L ALT (14-59) U/L Alkaline Phosphatase (46-116) U/L NT-Pro-B Natriuret Pep (<=125) pg/mL Total Protein (6.4-8.2) g/dL Albumin (3.4-5.0) g/dL Globulin Albumin/Globulin Ratio Lipase (73-393) U/L TSH, Ultra Sensitive (0.358-3.74) uIU/mL Meds: Medications Discontinued Medications Generic Name Dose Route Start Last Admin Trade Name Jose Mq PRN Reason Stop Dose Admin Sodium Chloride 1,000 mls @ 1,000 mls/hr 03/05/21 11:00 03/05/21 11:05 Normal Saline IV 1,000 mls/hr ASDIRECTED TEJA Administration Lactated Ringer's 1,000 mls @ 1,000 drops/hr 03/05/21 12:06 Ringers, Lactated IV 03/06/21 03:05 ONETIME ONE Metoclopramide HCl 10 mg 03/05/21 12:51 03/05/21 13:44 Metoclopramide 10 Mg/2 Ml Sdv IVPUSH 03/05/21 12:52 10 mg ONETIME ONE Administration Ondansetron HCl 4 mg 03/05/21 10:51 03/05/21 11:10 Ondansetron 4 Mg/2 Ml Sdv IVPUSH 03/05/21 10:52 4 mg ONETIME ONE Administration Sodium Chloride 10 ml 03/05/21 10:48 Sodium Chloride 0.9% 10 Ml Syringe FLUSH ASDIRECTED PRN Keep Vein Open - Re-Assessments/Exams Free Text/Narrative Re-Assessment/Exam: Pt. was given 2 liters of normal saline and several doses of zofran and reglan. Pt. reported feeling much improved and wished to be discharged. Departure - Departure Time of Disposition: 14:00 Disposition: Home, Self-Care 01 Clinical Impression: Gastroparesis Nausea & vomiting Qualifiers: Vomiting type: unspecified Vomiting Intractability: non-intractable Qualified Code(s): R11.2 - Nausea with vomiting, unspecified - Discharge Information Prescriptions: Ondansetron [Zofran ODT] 4 mg PO Q6H PRN #15 tab.dis PRN Reason: Nausea/Vomiting Instructions: Gastroparesis Referrals: Padmini Norris MD [Primary Care Provider] - Forms: ED Department Discharge Additional Instructions: Home to rest. Reglan 10mg every 6 hours Zofran ODT 4mg 1 every 6 hours Only clear liquids for the next 24 hours. Follow-up with Dr. Norris/JORGE as discussed. Sepsis Event Note (ED) - Evaluation Sepsis Screening Result: No Definite Risk - Focused Exam Vital Signs: Vital Signs Temp Pulse Resp BP Pulse Ox 03/05/21 10:44 37.0 C 110 H 18 149/86 H 98 - Problem List Review Problem List Initiated/Reviewed/Updated: Yes - My Orders Last 24 Hours: My Active Orders 03/05/21 10:48 Peripheral IV Insertion Adult [OM.PC] Routine - Assessment/Plan Last 24 Hours: My Active Orders 03/05/21 10:48 Peripheral IV Insertion Adult [OM.PC] Routine Plan: Home to rest. Reglan 10mg every 6 hours Zofran ODT 4mg 1 every 6 hours Only clear liquids for the next 24 hours. Follow-up with Dr. Norris/JORGE as discussed.
== END 2021-03-05 15:11 | disposition home or self-care (01) ==
LOC: VM.ED 10:15
DX: K31.84 Gastroparesis (principal); I10 Essential (primary) hypertension; E78.00 Pure hypercholesterolemia, unspecified; E11.9 Type 2 diabetes mellitus without complications; E66.9 Obesity, unspecified; Z68.39 Body mass index [BMI] 39.0-39.9, adult; Z79.4 Long term (current) use of insulin; Z79.899 Other long term (current) drug therapy; Z88.8 Allergy status to other drugs, medicaments and biological substances
CPT/HCPCS: 80053; 83690; 83735; 83880; 84100; 84443; 85025; 85610; 85730; 96374; 96375; 99284; 99284-25; J2405; J2765; J7030

== ENCOUNTER 2021-05-01 10:47 | Emergency (ER) | payer MEDICAID ==
[2021-05-01] MEDS ORDERED: Sodium Chloride 0.9% 10 ML Syringe FLUSH PRN (11:01)
[2021-05-01] MEDS: Sodium Chloride 0.9% 1,000 ML IV ONE ×2 (11:05→13:04)
[2021-05-01] MEDS: Metoclopramide 10 MG/2 ML SDV IVPUSH ONE (11:12)
[2021-05-01] MEDS: Ondansetron 4 MG/2 ML SDV IVPUSH ONE (11:14)
[2021-05-01] MEDS: LORazepam 2 MG/ML SDV IVPUSH ONE (11:35)
[2021-05-01 11:37] LABS: ANION GAP 15.4 mmol/L (5-15); CHLORIDE,CL 95 mmol/L (98-107); ESTIMATED GFR 40; SODIUM,NA 135 mmol/L (136-145)
[2021-05-01 20:15] VITALS: BP 149/92; PULSE 113
== END 2021-05-01 14:30 | disposition home or self-care (01) ==
LOC: VM.ED 10:47
DX: E86.0 Dehydration (principal); R11.2 Nausea with vomiting, unspecified; I12.9 Hypertensive chronic kidney disease with stage 1 through stage 4 chronic kidney disease, or unspecified chronic kidney disease; E11.22 Type 2 diabetes mellitus with diabetic chronic kidney disease; N18.9 Chronic kidney disease, unspecified; D63.1 Anemia in chronic kidney disease; D50.8 Other iron deficiency anemias; E66.9 Obesity, unspecified; Z68.41 Body mass index [BMI] 40.0-44.9, adult; Z88.8 Allergy status to other drugs, medicaments and biological substances; Z79.4 Long term (current) use of insulin; Z79.899 Other long term (current) drug therapy
CPT/HCPCS: 80053; 82150; 83605; 83690; 85025; 96374; 96375; 99284; 99284-25; J2060; J2405; J2765; J7030

== ENCOUNTER 2021-09-27 14:24 | Emergency (ER) | payer MEDICAID ==
[2021-09-27] MEDS ORDERED: Ondansetron 4 MG/2 ML SDV IVPUSH ONE (14:37)
[2021-09-27] MEDS ORDERED: Sodium Chloride 0.9% 1,000 ML IV ONE (14:37)
[2021-09-27 14:39] VITALS: BP 131/84; PULSE 105
[2021-09-27 15:13] LABS: CHLORIDE,CL 93 mmol/L (98-107); SODIUM,NA 134 mmol/L (136-145)
[2021-09-27 15:14] LABS: ANION GAP 15.3 mmol/L (5-15)
== END 2021-09-27 16:50 | disposition home or self-care (01) ==
LOC: VM.ED 14:24
DX: E86.0 Dehydration (principal); I10 Essential (primary) hypertension; E11.9 Type 2 diabetes mellitus without complications; E66.9 Obesity, unspecified; Z68.30 Body mass index [BMI] 30.0-30.9, adult; Z90.49 Acquired absence of other specified parts of digestive tract; Z79.899 Other long term (current) drug therapy; Z79.4 Long term (current) use of insulin; Z88.8 Allergy status to other drugs, medicaments and biological substances
CPT/HCPCS: 80053; 81001; 85025; 86140; 96361; 96374; 99284; J2405; J7030

== ENCOUNTER 2021-10-24 11:02 | Emergency (ER) | payer MEDICAID ==
[2021-10-24 11:23] VITALS: BP 136/83; PULSE 111
[2021-10-24] MEDS ORDERED: Sodium Chloride 0.9% 1,000 ML IV ONE ×2 (11:30→12:25)
[2021-10-24] MEDS ORDERED: Ondansetron 4 MG/2 ML SDV IVPUSH ONE (11:31)
[2021-10-24] MEDS ORDERED: Metoclopramide 10 MG/2 ML SDV IVPUSH ONE (11:31)
[2021-10-24] MEDS ORDERED: LORazepam 2 MG/ML SDV IVPUSH ONE (11:31)
== END 2021-10-24 13:36 | disposition home or self-care (01) ==
LOC: VM.ED 11:02
DX: R11.2 Nausea with vomiting, unspecified (principal); E78.00 Pure hypercholesterolemia, unspecified; I10 Essential (primary) hypertension; E11.9 Type 2 diabetes mellitus without complications; E66.9 Obesity, unspecified; Z68.30 Body mass index [BMI] 30.0-30.9, adult; Z88.8 Allergy status to other drugs, medicaments and biological substances; Z79.899 Other long term (current) drug therapy
CPT/HCPCS: 96361; 96374; 96375; 99283; J2060; J2405; J2765; J7030; 99284

== ENCOUNTER 2024-09-09 13:52 | Inpatient (IN) | payer MEDICAID ==
[2024-09-09] MEDS ORDERED: Acetaminophen 325 MG Tab PO PRN (14:26)
[2024-09-09] MEDS: Sodium Chloride 0.9% 10 ML Syringe FLUSH PRN (15:44)
[2024-09-09] MEDS: Ondansetron 4 MG/2 ML SDV IV PRN (15:45)
[2024-09-09] MEDS: Ondansetron 4 MG Tab.DIS PO PRN (16:02)
[2024-09-09] MEDS ORDERED: Glucagon,Human Recombinant 1 MG Vial IM PRN (17:14)
[2024-09-09] MEDS ORDERED: 50% Dextrose in Water 50 ML Syringe IVPUSH PRN (17:14)
[2024-09-09] MEDS: Sodium Chloride 0.9% 1,000 ML IV SCH (17:41)
[2024-09-09] MEDS: Insulin Lispro 100 Units/ML 3 ML Vial SUBCUT SCH (18:38)
[2024-09-09] MEDS: Insulin Glarg,Human.Rec.Analog 100 Unit/ML 10 ML Vial SUBCUT SCH (21:07)
[2024-09-10] MEDS: Pantoprazole 40 MG Tab.CR PO SCH (06:27)
[2024-09-10 07:32] LABS: BASOPHILS PERCENT AUTO 0.3 % (0.2-1.2); EOSINOPHILS ABSOLUTE AUTO 0.1 x10^3/uL (0.0-0.5); EOSINOPHILS PERCENT AUTO 0.6 % (0.0-4.0); HEMATOCRIT 40.1 % (33.0-47.0); IMMATURE GRAN ABSOLUTE AUTO 0.08 x10^3/uL (0.00-0.07); LYMPHOCYTES ABSOLUTE AUTO 3.3 x10^3/uL (1.0-4.8); LYMPHOCYTES PERCENT AUTO 29.3 % (25.0-50.0); MEAN CORPUSCULAR HEMOGLOBIN 27.3 pg (26.0-32.0); MEAN CORPUSCULAR HGB CONC 32.4 g/dL (32.0-36.0); MEAN CORPUSCULAR VOLUME 84.1 fL (78.0-93.0); MONOCYTES ABSOLUTE AUTO 0.7 x10^3/uL (0.0-0.8); MONOCYTES PERCENT AUTO 6.1 % (2.0-11.0); NEUTROPHILS ABSOLUTE AUTO 7.1 x10^3/uL (1.8-7.7); PLATELET COUNT,PLT 318 x10^3/uL (130-400); RED BLOOD CELL COUNT 4.77 x10^6/uL (4.00-5.50); WHITE BLOOD CELL COUNT,WBC 11.3 x10^3/uL (4.0-10.0)
[2024-09-10 07:43] LABS: A/G RATIO 0.86; ALBUMIN 3.2 g/dL (3.4-5.0); BILIRUBIN TOTAL 0.5 mg/dL (0.2-1.0); CALCIUM 8.4 mg/dL (8.5-10.1); CREATININE 1.3 mg/dL (0.55-1.02); EST CRCL DRUG DOSING (CG) 43.22 mL/min; POTASSIUM,K 3.5 mmol/L (3.5-5.1); PROTEIN TOTAL,TP 6.9 g/dL (6.4-8.2)
[2024-09-10 07:44] LABS: ANION GAP 11.5 mmol/L (5-15)
[2024-09-10] MEDS: Hydrochlorothiazide 25 MG Tab PO SCH (08:18)
[2024-09-10] MEDS: Lisinopril 20 MG Tab PO SCH (08:18)
[2024-09-10] MEDS ORDERED: Labetalol 20 MG/4 ML Syringe IVPUSH PRN (11:36)
[2024-09-10] MEDS: Enoxaparin 40 MG/0.4 ML Syringe SUBCUT SCH (12:18)
[2024-09-11 08:01] LABS: A/G RATIO 0.89; ALBUMIN 3.1 g/dL (3.4-5.0); ANION GAP 11.5 mmol/L (5-15); BILIRUBIN TOTAL 0.4 mg/dL (0.2-1.0); CALCIUM 8.5 mg/dL (8.5-10.1); CREATININE 1.1 mg/dL (0.55-1.02); EST CRCL DRUG DOSING (CG) 51.07 mL/min; POTASSIUM,K 3.5 mmol/L (3.5-5.1); PROTEIN TOTAL,TP 6.6 g/dL (6.4-8.2)
[2024-09-11] MEDS ORDERED: Metoclopramide 10 MG Tab PO ONE (10:46)
[2024-09-11 11:45] VITALS: BP 161/90; PULSE 90
[2024-09-11] MEDS: Metoclopramide 5 MG Tab PO ONE (11:45)
[2024-09-12] MEDS ORDERED: atorvaSTATin 10 MG Tab PO SCH (09:00)
== END 2024-09-11 11:45 | disposition home or self-care (01) | DRG 74 ==
LOC: VM.MS 13:52
PROVIDERS: ADMIT Nurse Practitioner Family; ATTEND Nurse Practitioner Family
DX: E11.43 Type 2 diabetes mellitus with diabetic autonomic (poly)neuropathy (principal); N17.9 Acute kidney failure, unspecified; Z68.42 Body mass index [BMI] 45.0-49.9, adult; K31.84 Gastroparesis; I12.9 Hypertensive chronic kidney disease with stage 1 through stage 4 chronic kidney disease, or unspecified chronic kidney disease; N18.9 Chronic kidney disease, unspecified; E11.22 Type 2 diabetes mellitus with diabetic chronic kidney disease; E78.00 Pure hypercholesterolemia, unspecified; E11.319 Type 2 diabetes mellitus with unspecified diabetic retinopathy without macular edema; K59.09 Other constipation; K21.9 Gastro-esophageal reflux disease without esophagitis; E66.9 Obesity, unspecified; E11.65 Type 2 diabetes mellitus with hyperglycemia; Z98.51 Tubal ligation status; Z98.890 Other specified postprocedural states; Z88.8 Allergy status to other drugs, medicaments and biological substances; Z79.4 Long term (current) use of insulin; Z79.899 Other long term (current) drug therapy
CPT/HCPCS: 36415; 80053; 82947; 83605; 85025; 99233; 99238; A9270-GY; J1650; J1815-GY; J2405; J7030; Q3014

== ENCOUNTER 2024-11-17 09:29 | Day surgery (SDC) | payer MEDICAID ==
[2024-11-17] MEDS: Lactated Ringers 1,000 ML IV SCH (09:40)
[2024-11-17] MEDS ORDERED: fentaNYL 100 MCG/2 ML SDV ONE (10:14)
[2024-11-17] MEDS ORDERED: Propofol 200 MG/20 ML SDV ONE (10:14)
[2024-11-17 11:49] VITALS: BP 106/55; PULSE 83
== END 2024-11-17 12:27 | disposition home or self-care (01) ==
LOC: VM.SDS 09:29
PROVIDERS: ATTEND Family Medicine
DX: K31.7 Polyp of stomach and duodenum (principal); K31.84 Gastroparesis; K44.9 Diaphragmatic hernia without obstruction or gangrene; K21.9 Gastro-esophageal reflux disease without esophagitis; I12.9 Hypertensive chronic kidney disease with stage 1 through stage 4 chronic kidney disease, or unspecified chronic kidney disease; E11.22 Type 2 diabetes mellitus with diabetic chronic kidney disease; N18.32 Chronic kidney disease, stage 3b; E66.9 Obesity, unspecified; Z88.8 Allergy status to other drugs, medicaments and biological substances; Z68.41 Body mass index [BMI] 40.0-44.9, adult; Z87.891 Personal history of nicotine dependence; Z79.899 Other long term (current) drug therapy
CPT/HCPCS: 00731; 82947; J2704; J3010; J7120